=== PATIENT | female | born 1985 | race Caucasian/White ===

== ENCOUNTER 2017-09-19 18:20 | Emergency (ER) | payer MEDICAID, OTHER ==
[~2017-09-19] VITALS: Ht 165.1 cm; Wt 108.0 kg
[~2017-09-19 18:20] MED LIST: FERR27TA PO; PREN-39 PO
[2017-09-19 18:23] VITALS: Ht 165.1 cm; Wt 108.0 kg
[2017-09-19] MEDS ORDERED: KETOROLAC 15 MG INJ IV STA (19:46)
[2017-09-19] MEDS ORDERED: SOD CHLORIDE 0.9% 1,000 ML IV STA (19:46)
[2017-09-19] MEDS ORDERED: ONDANSETRON 4 MG INJ IV STA ×2 (19:46→21:04)
[2017-09-19] MEDS ORDERED: morphine 4 MG/ML VIAL IV STA (19:46)
[2017-09-19 20:34] LABS: BASOPHIL # 0.1 10^3/ul (0.0-0.1); BASOPHILS % 0.7 % (0.0-2.0); EOSINOPHILS # 0.2 10^3/ul (0.0-0.5); EOSINOPHILS % 1.6 % (0.0-7.0); HEMATOCRIT 38.4 % (37.0-47.0); HEMOGLOBIN 12.4 g/dl (12.0-16.0); LYMPHOCYTES # 2.6 10^3/ul (0.8-2.9); LYMPHOCYTES % 21.2 % (15.0-51.0); MEAN CORPUSCULAR HEMOGLOBIN 26.1 pg (29.0-33.0); MEAN CORPUSCULAR HGB CONC 32.3 g/dl (32.0-37.0); MEAN CORPUSCULAR VOLUME 80.7 fl (82.0-101.0); MEAN PLATELET VOLUME 9.8 fl (7.4-10.4); MONOCYTE # 0.7 10^3/ul (0.3-0.9); MONOCYTES % 5.4 % (0.0-11.0); NEUTROPHIL # 8.7 10^3/ul (1.6-7.5); NEUTROPHILS % 70.7 % (39.0-77.0); PLATELET COUNT 442 10^3/UL (140-415); RED BLOOD COUNT 4.76 10^6/ul (4.20-5.40); RED CELL DISTRIBUTION WIDTH 16.1 % (11.5-14.5); WHITE BLOOD COUNT 12.3 10^3/ul (4.8-10.8)
[2017-09-19 20:44] LABS: ADD UMIC NO; UR ASCORBIC ACID 40 mg/dL (NEGATIVE); UR BILIRUBIN (Dip) NEGATIVE (NEGATIVE); UR BLOOD (Dip) NEGATIVE (NEGATIVE); UR CLARITY CLEAR (CLEAR); UR COLOR YELLOW (YELLOW); UR GLUCOSE (Dip) NEGATIVE (NEGATIVE); UR KETONES (Dip) NEGATIVE (NEGATIVE); UR LEUKOCYTE ESTERASE (Dip) NEGATIVE Leu/ul (NEGATIVE); UR NITRITE (Dip) NEGATIVE (NEGATIVE); UR SPECIFIC GRAVITY (Dip) 1.025 (1.003-1.030); UR TOTAL PROTEIN (Dip) NEGATIVE (NEGATIVE); UR UROBILINOGEN (Dip) NEGATIVE (NEGATIVE)
[2017-09-19 20:49] LABS: ALBUMIN 3.8 g/dl (3.3-4.9); ALBUMIN/GLOBULIN RATIO 1.02; BILIRUBIN,INDIRECT 0.1 mg/dl (0-1.1); BILIRUBIN,TOTAL 0.1 mg/dl (0.2-1.3); CALCIUM 9.6 mg/dl (8.4-10.2); CREATININE 0.75 mg/dl (0.44-1.00); POTASSIUM 4.3 mmol/L (3.5-5.1); TOTAL PROTEIN 7.5 g/dl (6.1-8.1)
--- NOTE | 2017-09-19 20:49 | RADRPT ---
PROCEDURE: CT Abdomen and Pelvis without contrast. CLINICAL INDICATION: Abdominal pain. TECHNIQUE: CT scan of the abdomen and pelvis without contrast was performed on a multidetector CT scanner. The patient was scanned without intravenous contrast. Coronal and sagittal reformatted chelsea ges were obtained from the axial source images. Images were reviewed on a high-resolution PACS works tation. DICOM images are available. One or more of the following dose reduction techniques were used: -Automated exposure control. -Adjustment of the mA and/or kV according to patient size. -Use of iterative reconstruction technique. The total exam CTDI equals 23.31 mGy and the total exam DLP equals 1415.88 mGy-cm. COMPARISON: None. FINDINGS: Please note that the sensitivity for detection of focal lesions or vascular disease is markedly redu daniela without intravenous contrast. The visualized lung bases are clear. CT abdomen: Liver: Appears enlarged with fatty infiltration. Biliary system: No intra or extrahepatic biliary ductal dilatation. Gallbladder: Unremarkable. Pancreas: Unremarkable. Spleen: Unremarkable. Adrenal glands: Unremarkable. Right kidney: Unremarkable. No renal or ureteric stones. No hydronephrosis or hydroureter. Left kidney: Unremarkable. No renal or ureteric stones. No hydronephrosis or hydroureter. Bowel loops: There is mild sigmoid diverticulosis without acute diverticulitis. There is no bowel o bstruction. Appendix is normal. Lymph Nodes: There is no mesenteric lymphadenopathy. There is no retroperitoneal lymphadenopathy. There is a healed midline abdominal incision with associated thickening of the anterior abdominal wa ll with associated fat stranding. CT pelvis: Rectum: Unremarkable. Urinary bladder: Unremarkable. Status post hysterectomy. No adnexal masses. Lymph nodes: There is no iliac lymphadenopathy. There is no inguinal lymphadenopathy. Bone: No aggressive osseous lesions. IMPRESSION: 1. Healed midline abdominal incision with associated thickening of the anterior abdominal wall with associated fat stranding. Findings could be related to fibrosis, however recommend correlation for a ny signs of infection. 2. No bowel obstruction. Normal appendix. 3. Hepatomegaly with hepatic steatosis. 4. Status post hysterectomy. RPTAT: [facility] Physician Josh Date Time Electronically viewed and signed by Philipy Ho, Physician on 09/19/2017 20:48 PH/
[2017-09-19] MEDS ORDERED: IBUP400T22 PO (21:10)
[2017-09-19 21:20] VITALS: BP 103/55; PULSE 74; RESP 20; TEMP 98.1
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
== END 2017-09-19 21:22 | disposition home or self-care (01) ==
LOC: FTE 18:20
DX: R10.84 Generalized abdominal pain (principal); F17.210 Nicotine dependence, cigarettes, uncomplicated
CPT/HCPCS: 74176; 80053; 81003; 83690; 85025; 96374; 96375; 96376; J1885; J2270; J2405; J7030; Z7502

== ENCOUNTER 2019-01-13 16:53 | Inpatient (IN) | payer OTHER ==
[~2019-01-13] VITALS: Ht 154.9 cm; Wt 108.9 kg
[~2019-01-13 16:53] MED LIST changes: +IBUP-1541 PO
[2019-01-13 17:20] VITALS: Ht 154.9 cm; Wt 108.9 kg
[2019-01-13] MEDS ORDERED: NACL 0.9% 3 ML SYG IV SCH (17:30)
[2019-01-13] MEDS ORDERED: MAGNESIUM HYDROXIDE 30ML CUP PO PRN (17:30)
[2019-01-13] MEDS ORDERED: ACETAMINOPHEN 325 MG TAB PO PRN (17:30)
[2019-01-13] MEDS ORDERED: DOCUSATE SODIUM 100 MG CAP PO PRN (17:30)
[2019-01-13] MEDS ORDERED: ONDANSETRON 4 MG INJ IV PRN (17:30)
[2019-01-13 17:32] VITALS: BP 118/71; PULSE 79; RESP 18
[2019-01-13] MEDS: morphine 2 MG INJ IV PRN ×2 (17:54→22:07)
[2019-01-13] MEDS: FERROUS SULFATE (EC) 325 MG TAB PO SCH (17:54)
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
[2019-01-13] MEDS: NICOTINE (21 MG/24 HR) PATCH TRANSDERM SCH (19:02)
[2019-01-13 19:59] VITALS: BP 129/74; PULSE 83; RESP 18
[2019-01-13] MEDS: FAMOTIDINE 20 MG TAB PO SCH (21:28)
[2019-01-13] MEDS: HYDROCODONE/APAP (5/325) TAB PO PRN (23:18)
[2019-01-14 02:07] VITALS: BP 125/68; PULSE 77; RESP 18
[2019-01-14 08:02] VITALS: BP 120/66; PULSE 73; RESP 18
--- NOTE | 2019-01-14 08:49 | PN ---
Date/Time of Note Date/Time of Note DATE: 01/14/19 TIME: 08:49 Assessment/Plan VTE Prophylaxis Risk score (from Nsg)>0 risk: 2 SCD applied (from Nsg): Yes Pharmacological prophylaxis: NA/contraindicated Pharm contraindication: low risk/ambulating Lines/Catheters IV Catheter Type (from Nrsg): Peripheral IV Assessment/Plan Assessment/Plan 1. Acute neck, scalp, and chest discomfort - IR consulted for biopsy of soft tissue densities seen on OSH CT chest. - CT chest from OSH reviewed and shows "ill-defined increased soft tissue density in the subcutaneous fat overlying the right medial clavicular head with normal asymmetric enlargement of the distal inferior right sternocleidomastoid muscle measuring up to 5 x3.5bm. Abnormal ill defined soft tissue density posterior to the manubrium extending superiorly anterior to the thyroid displacing the thyroid, innominate vein, and the trachea posteriorly approx 4.6 x 4cm." - pain control 2. Microcytic anemia - iron levels noted - continue on home iron supplementation - Hgb stable 3. Tobacco abuse - nicotine patch - offered cessation counseling 4. Meth abuse - counseled about cessation 5. Transaminitis - US RUQ shows fatty liver - will monitor for improvement in LFT - Hepatitis panel negative 6. Disposition - Continue current treatment pending IR biopsy of soft tissue densities Result Diagram: 01/14/19 0550 01/14/19 0550 Results 24hrs Laboratory Tests Test 01/14/19 05:50 White Blood Count 5.6 # Red Blood Count 5.09 Hemoglobin 12.9 Hematocrit 41.1 Mean Corpuscular Volume 80.7 L Mean Corpuscular Hemoglobin 25.3 L Mean Corpuscular Hemoglobin Concent 31.4 L Red Cell Distribution Width 12.9 Platelet Count 496 H Mean Platelet Volume 9.0 Immature Granulocytes % 0.400 Neutrophils % 70.1 Lymphocytes % 20.5 Monocytes % 6.1 Eosinophils % 2.2 Basophils % 0.7 Nucleated Red Blood Cells % 0.0 Immature Granulocytes # 0.020 Neutrophils # 3.9 Lymphocytes # 1.1 Monocytes # 0.3 Eosinophils # 0.1 Basophils # 0.0 Nucleated Red Blood Cells # 0.0 Sodium Level 138 Potassium Level 5.1 Chloride Level 100 Carbon Dioxide Level 31 Anion Gap 7 Blood Urea Nitrogen 13 Creatinine 0.69 Est Glomerular Filtrat Rate mL/min > 60 Glucose Level 108 Calcium Level 8.9 Magnesium Level 2.1 Iron Level 30 L Total Iron Binding Capacity 275 Percent Iron Saturation 11 L Total Bilirubin 0.2 Direct Bilirubin 0.00 Indirect Bilirubin 0.2 Aspartate Amino Transf (AST/SGOT) 498 H Alanine Aminotransferase (ALT/SGPT) 241 H Alkaline Phosphatase 254 H Total Protein 7.5 Albumin 3.4 Globulin 4.10 H Albumin/Globulin Ratio 0.82 Free Thyroxine Index 2.27 Thyroxine (T4) 7.3 Triiodothyronine (T3) Uptake 31.1 Subjective 24 Hr Interval Summary Free Text/Dictation Patient states she's still experiencing pain with movement of her head to the le ft. States relief with Morphine and [place]. Exam/Review of Systems Exam Vitals Vital Signs Date Temp Pulse Resp B/P (MAP) Pulse Ox O2 O2 Flow FiO2 Time Delivery Rate 01/14/19 98.3 73 18 120/66 97 Room Air 08:02 (84) Intake and Output 01/13/19 01/13/19 01/14/19 1515:00 23:00 07:00 IntakeIntake Total 240 ml 200 ml BalanceBalance 240 ml 200 ml Exam General: no acute distress, discomfort when turns head to left. Head: Normocephalic atraumatic Eyes: EOMI, pupils reactive to light. Neck: Supple, nontender Chest: erythema and hard mass palpated right clavicular area. Respiratory: Clear to auscultation bilaterally. no wheezing or rhonchi Cardiovascular: S1, S2, regular rate and rhythm, no obvious murmurs Gastrointestinal: soft, non-tender to palpation, nondistended, bowel sounds heard. Skin: no draining masses appreciated Results Results 24hrs Laboratory Tests Test 01/14/19 05:50 White Blood Count 5.6 # Red Blood Count 5.09 Hemoglobin 12.9 Hematocrit 41.1 Mean Corpuscular Volume 80.7 L Mean Corpuscular Hemoglobin 25.3 L Mean Corpuscular Hemoglobin Concent 31.4 L Red Cell Distribution Width 12.9 Platelet Count 496 H Mean Platelet Volume 9.0 Immature Granulocytes % 0.400 Neutrophils % 70.1 Lymphocytes % 20.5 Monocytes % 6.1 Eosinophils % 2.2 Basophils % 0.7 Nucleated Red Blood Cells % 0.0 Immature Granulocytes # 0.020 Neutrophils # 3.9 Lymphocytes # 1.1 Monocytes # 0.3 Eosinophils # 0.1 Basophils # 0.0 Nucleated Red Blood Cells # 0.0 Sodium Level 138 Potassium Level 5.1 Chloride Level 100 Carbon Dioxide Level 31 Anion Gap 7 Blood Urea Nitrogen 13 Creatinine 0.69 Est Glomerular Filtrat Rate mL/min > 60 Glucose Level 108 Calcium Level 8.9 Magnesium Level 2.1 Iron Level 30 L Total Iron Binding Capacity 275 Percent Iron Saturation 11 L Total Bilirubin 0.2 Direct Bilirubin 0.00 Indirect Bilirubin 0.2 Aspartate Amino Transf (AST/SGOT) 498 H Alanine Aminotransferase (ALT/SGPT) 241 H Alkaline Phosphatase 254 H Total Protein 7.5 Albumin 3.4 Globulin 4.10 H Albumin/Globulin Ratio 0.82 Free Thyroxine Index 2.27 Thyroxine (T4) 7.3 Triiodothyronine (T3) Uptake 31.1 Medications Medication Current Medications Ferrous Sulfate (Ferrous Sulfate (Ec)) 325 mg DAILY PO Last administered on 01/13/19at 17:54; Admin Dose 325 MG; Start 01/13/19 at 17:30 IV Flush (NS 3 ml) 3 ml PER PROTOCOL IV ; Start 01/13/19 at 17:30 Ondansetron HCl (Zofran Inj) 4 mg Q6H PRN IV NAUSEA/VOMITING; Start 01/13/19 at 17:30 Acetaminophen (Tylenol Tab) 650 mg Q6H PRN PO .PAIN 1-3 OR TEMP; Start 01/13/19 at 17:30 Acetaminophen/ Hydrocodone Bitart ([place] (5/325)) 1 tab Q6H PRN PO .MOD PAIN 4- 6 Last administered on 01/13/19at 23:18; Admin Dose 1 TAB; Start 01/13/19 at 17:30 Morphine Sulfate (morphine) 2 mg Q4H PRN IV .SEVERE PAIN 7-10 Last administered on 01/13/19at 22:07; Admin Dose 2 MG; Start 01/13/19 at 17:30 Docusate Sodium (Colace) 100 mg Q12H PRN PO .CONSTIPATION; Start 01/13/19 at 17:30 Magnesium Hydroxide (Milk Of Mag) 30 ml DAILY PRN PO .CONSTIPATION; Start 01/13/19 at 17:30 Famotidine (Pepcid) 20 mg Q12 PO Last administered on 01/13/19at 21:28; Admin Do se 20 MG; Start 01/13/19 at 21:00 Nicotine (Nicoderm 21 Mg/ 24hr) 1 patch DAILY TRANSDERM Last administered on 01/13/19at 19:02; Admin Dose 1 PATCH; Start 01/13/19 at 18:30 MEENAKSHI BROUSSARD MD Jan 14, 2019 08:49
[2019-01-14] MEDS: FAMOTIDINE 20 MG TAB PO SCH ×2 (09:40→20:37)
[2019-01-14] MEDS: FERROUS SULFATE (EC) 325 MG TAB PO SCH (09:40)
[2019-01-14] MEDS: NICOTINE (21 MG/24 HR) PATCH TRANSDERM SCH (09:40)
[2019-01-14] MEDS: morphine 2 MG INJ IV PRN ×3 (09:41→20:38)
[2019-01-14] MEDS: HYDROCODONE/APAP (5/325) TAB PO PRN ×2 (11:36→18:36)
[2019-01-14 14:49] VITALS: BP 122/82; PULSE 87; RESP 18
[2019-01-14 20:06] VITALS: BP 130/56; PULSE 88; RESP 18
[2019-01-15] MEDS: morphine 2 MG INJ IV PRN ×4 (01:04→17:13)
[2019-01-15 01:55] VITALS: BP 132/62; PULSE 82; RESP 18
[2019-01-15] MEDS: HYDROCODONE/APAP (5/325) TAB PO PRN ×3 (02:20→15:23)
[2019-01-15 07:33] VITALS: BP 138/69; PULSE 89; RESP 17
[2019-01-15] MEDS: FERROUS SULFATE (EC) 325 MG TAB PO SCH (08:11)
[2019-01-15] MEDS: FAMOTIDINE 20 MG TAB PO SCH ×2 (08:11→21:20)
[2019-01-15] MEDS: NICOTINE (21 MG/24 HR) PATCH TRANSDERM SCH (08:11)
--- NOTE | 2019-01-15 08:44 | PN ---
Date/Time of Note Date/Time of Note DATE: 01/15/19 TIME: 08:44 Assessment/Plan VTE Prophylaxis Risk score (from Ns)>0 risk: 2 SCD applied (from Ns): Yes Pharmacological prophylaxis: NA/contraindicated Pharm contraindication: low risk/ambulating Lines/Catheters IV Catheter Type (from Nrsg): Saline Lock Assessment/Plan Assessment/Plan 1. Acute neck, scalp, and chest discomfort - Secondary to enlargement of SCM seen on imaging studies 2. Density overlying R clavicular head and anterior to thyroid - IR consulted for biopsy of soft tissue densities seen on OSH CT chest. - CT chest from OSH reviewed and shows "ill-defined increased soft tissue density in the subcutaneous fat overlying the right medial clavicular head with normal asymmetric enlargement of the distal inferior right sternocleidomastoid muscle measuring up to 5 x3.5bm. Abnormal ill defined soft tissue density posterior to the manubrium extending superiorly anterior to the thyroid displacing the thyroid, innominate vein, and the trachea posteriorly approx 4.6 x 4cm." - pain control 3. Microcytic anemia - iron levels noted - continue on home iron supplementation - Hgb stable 4. Tobacco abuse - nicotine patch - offered cessation counseling 5. Meth abuse - counseled about cessation 6. Transaminitis - US RUQ shows fatty liver - LFT trending down - Hepatitis panel negative 7. Disposition - Continue current treatment pending IR biopsy of soft tissue densities tomorrow Result Diagram: 01/15/19 0534 01/15/19 0534 Results 24hrs Laboratory Tests Test 01/15/19 05:34 White Blood Count 8.2 # Red Blood Count 5.07 Hemoglobin 12.9 Hematocrit 40.8 Mean Corpuscular Volume 80.5 L Mean Corpuscular Hemoglobin 25.4 L Mean Corpuscular Hemoglobin Concent 31.6 L Red Cell Distribution Width 13.1 Platelet Count 565 H Mean Platelet Volume 8.9 Immature Granulocytes % 0.500 H Neutrophils % 71.3 Lymphocytes % 18.1 Monocytes % 6.8 Eosinophils % 2.6 Basophils % 0.7 Nucleated Red Blood Cells % 0.0 Immature Granulocytes # 0.040 H Neutrophils # 5.9 Lymphocytes # 1.5 Monocytes # 0.6 Eosinophils # 0.2 Basophils # 0.1 Nucleated Red Blood Cells # 0.0 Sodium Level 139 Potassium Level 4.7 Chloride Level 102 Carbon Dioxide Level 31 Anion Gap 6 Blood Urea Nitrogen 11 Creatinine 0.73 Est Glomerular Filtrat Rate mL/min > 60 Glucose Level 100 Calcium Level 8.8 Magnesium Level 2.2 Total Bilirubin 0.2 Direct Bilirubin 0.00 Indirect Bilirubin 0.2 Aspartate Amino Transf (AST/SGOT) 232 H Alanine Aminotransferase (ALT/SGPT) 278 H Alkaline Phosphatase 273 H Total Protein 7.6 Albumin 3.5 Globulin 4.10 H Albumin/Globulin Ratio 0.85 Subjective 24 Hr Interval Summary Free Text/Dictation Patient still complaining of pain when turning her neck to the left. No acute overnight events. Exam/Review of Systems Exam Vitals Vital Signs Date Temp Pulse Resp B/P (MAP) Pulse Ox O2 O2 Flow FiO2 Time Delivery Rate 01/15/19 98.0 89 17 138/69 98 Room Air 07:33 (92) Intake and Output 01/14/19 01/14/19 01/15/19 1515:00 23:00 07:00 IntakeIntake Total 720 ml 360 ml 400 ml BalanceBalance 720 ml 360 ml 400 ml Exam General: no acute distress, discomfort when turns head to left. Head: Normocephalic atraumatic Eyes: EOMI, pupils reactive to light. Neck: Supple, nontender Chest: erythema and hard mass palpated right clavicular area. Respiratory: Clear to auscultation bilaterally. no wheezing or rhonchi Cardiovascular: S1, S2, regular rate and rhythm, no obvious murmurs Gastrointestinal: soft, non-tender to palpation, nondistended, bowel sounds heard. Skin: no draining masses appreciated Results Results 24hrs Laboratory Tests Test 01/15/19 05:34 White Blood Count 8.2 # Red Blood Count 5.07 Hemoglobin 12.9 Hematocrit 40.8 Mean Corpuscular Volume 80.5 L Mean Corpuscular Hemoglobin 25.4 L Mean Corpuscular Hemoglobin Concent 31.6 L Red Cell Distribution Width 13.1 Platelet Count 565 H Mean Platelet Volume 8.9 Immature Granulocytes % 0.500 H Neutrophils % 71.3 Lymphocytes % 18.1 Monocytes % 6.8 Eosinophils % 2.6 Basophils % 0.7 Nucleated Red Blood Cells % 0.0 Immature Granulocytes # 0.040 H Neutrophils # 5.9 Lymphocytes # 1.5 Monocytes # 0.6 Eosinophils # 0.2 Basophils # 0.1 Nucleated Red Blood Cells # 0.0 Sodium Level 139 Potassium Level 4.7 Chloride Level 102 Carbon Dioxide Level 31 Anion Gap 6 Blood Urea Nitrogen 11 Creatinine 0.73 Est Glomerular Filtrat Rate mL/min > 60 Glucose Level 100 Calcium Level 8.8 Magnesium Level 2.2 Total Bilirubin 0.2 Direct Bilirubin 0.00 Indirect Bilirubin 0.2 Aspartate Amino Transf (AST/SGOT) 232 H Alanine Aminotransferase (ALT/SGPT) 278 H Alkaline Phosphatase 273 H Total Protein 7.6 Albumin 3.5 Globulin 4.10 H Albumin/Globulin Ratio 0.85 Medications Medication Current Medications Ferrous Sulfate (Ferrous Sulfate (Ec)) 325 mg DAILY PO Last administered on 01/15/19 08:11; Admin Dose 325 MG; Start 01/13/19 at 17:30 IV Flush (NS 3 ml) 3 ml PER PROTOCOL IV ; Start 01/13/19 at 17:30 Ondansetron HCl (Zofran Inj) 4 mg Q6H PRN IV NAUSEA/VOMITING; Start 01/13/19 at 17:30 Acetaminophen (Tylenol Tab) 650 mg Q6H PRN PO .PAIN 1-3 OR TEMP; Start 01/13/19 at 17:30 Acetaminophen/ Hydrocodone Bitart ([place] (5/325)) 1 tab Q6H PRN PO .MOD PAIN 4- 6 Last administered on 01/15/19 02:20; Admin Dose 1 TAB; Start 01/13/19 at 17:30 Morphine Sulfate (morphine) 2 mg Q4H PRN IV .SEVERE PAIN 7-10 Last administered on 01/15/19 07:48; Admin Dose 2 MG; Start 01/13/19 at 17:30 Docusate Sodium (Colace) 100 mg Q12H PRN PO .CONSTIPATION; Start 01/13/19 at 17:30 Magnesium Hydroxide (Milk Of Mag) 30 ml DAILY PRN PO .CONSTIPATION; Start 01/13/19 at 17:30 Famotidine (Pepcid) 20 mg Q12 PO Last administered on 01/15/19 08:11; Admin Dose 20 MG; Start 01/13/19 at 21:00 Nicotine (Nicoderm 21 Mg/ 24hr) 1 patch DAILY TRANSDERM Last administered on 01/15/19 08:11; Admin Dose 1 PATCH; Start 01/13/19 at 18:30 MEENAKSHI BROUSSARD MD Jan 15, 2019 08:44
[2019-01-15 14:41] VITALS: BP 134/76; PULSE 89; RESP 17
[2019-01-15 19:15] VITALS: BP 135/76; PULSE 98; RESP 18
[2019-01-15] MEDS: HYDROmorphONE 0.5 MG/0.5 ML SYG IV PRN (21:20)
[2019-01-16 01:16] VITALS: BP 143/70; PULSE 97; RESP 18
[2019-01-16] MEDS: HYDROmorphONE 0.5 MG/0.5 ML SYG IV PRN ×5 (01:34→18:43)
[2019-01-16 07:35] VITALS: BP 119/67; PULSE 86; RESP 16
[2019-01-16] MEDS: FAMOTIDINE 20 MG TAB PO SCH ×2 (08:02→20:31)
[2019-01-16] MEDS: HYDROCODONE/APAP (10/325) TAB PO PRN ×2 (08:02→20:35)
[2019-01-16] MEDS: FERROUS SULFATE (EC) 325 MG TAB PO SCH (08:02)
[2019-01-16] MEDS: NICOTINE (21 MG/24 HR) PATCH TRANSDERM SCH (08:03)
[2019-01-16 14:13] VITALS: BP 119/64; PULSE 88; RESP 18
--- NOTE | 2019-01-16 18:19 | PN ---
Date/Time of Note Date/Time of Note DATE: 01/16/19 TIME: 18:19 Objective Vitals Vital Signs Date Temp Pulse Resp B/P (MAP) Pulse Ox O2 O2 Flow FiO2 Time Delivery Rate 01/16/19 97.8 88 18 119/64 96 14:13 (82) 01/15/19 Room Air 14:41 Intake and Output 01/15/19 01/15/19 01/16/19 1515:00 23:00 07:00 IntakeIntake Total 600 ml 440 ml BalanceBalance 600 ml 440 ml Results Result Diagram: 01/16/19 0455 01/16/19 0455 Medications Medications Current Medications Ferrous Sulfate (Ferrous Sulfate (Ec)) 325 mg DAILY PO Last administered on 01/16/19 08:02; Admin Dose 325 MG; Start 01/13/19 at 17:30 IV Flush (NS 3 ml) 3 ml PER PROTOCOL IV ; Start 01/13/19 at 17:30 Ondansetron HCl (Zofran Inj) 4 mg Q6H PRN IV NAUSEA/VOMITING; Start 01/13/19 at 17:30 Acetaminophen (Tylenol Tab) 650 mg Q6H PRN PO .PAIN 1-3 OR TEMP; Start 01/13/19 at 17:30 Acetaminophen/ Hydrocodone Bitart ([place] (5/325)) 1 tab Q6H PRN PO .MOD PAIN 4- 6 Last administered on 01/15/19at 15:23; Admin Dose 1 TAB; Start 01/13/19 at 17:30 Docusate Sodium (Colace) 100 mg Q12H PRN PO .CONSTIPATION; Start 01/13/19 at 17:30 Magnesium Hydroxide (Milk Of Mag) 30 ml DAILY PRN PO .CONSTIPATION; Start 01/13/19 at 17:30 Famotidine (Pepcid) 20 mg Q12 PO Last administered on 01/16/19 08:02; Admin Dose 20 MG; Start 01/13/19 at 21:00 Nicotine (Nicoderm 21 Mg/ 24hr) 1 patch DAILY TRANSDERM Last administered on 01/16/19 08:03; Admin Dose 1 PATCH; Start 01/13/19 at 18:30 Acetaminophen/ Hydrocodone Bitart ([place] (10/325)) 1 tab Q6H PRN PO SEVERE PAIN LEVEL 7-10 Last administered on 4/8/19at 08:02; Admin Dose 1 TAB; Start 01/15/19 at 18:30 Hydromorphone HCl (Dilaudid) 0.5 mg Q4H PRN IV SEVERE PAIN LEVEL 7-10 Last administered on 01/16/19at 15:10; Admin Dose 0.5 MG; Start 01/15/19 at 18:30 VTE Prophylaxis Risk score (from Ns)>0 risk: 2 SCD applied (from Ns): Yes Lines/Catheters IV Catheter Type: Fletcher in Place: No Assessment/Plan Hospital Course Subjective Patient still having complaints with the questionable neck mass, however states that it appears to increase and decrease in size and possibly move even Objective Physical exam General: Patient is laying in bed and answers questions appropriately Mentation: Patient is alert and oriented 4, Head: Normocephalic atraumatic Eyes: EOMI, pupils reactive to light Neck: Supple, nontender, midline Respiratory: Clear to auscultation bilaterally Cardiovascular: regular rate, no obvious murmurs Gastrointestinal: non-tender to palpation, bowel sounds heard. Neurological: Moves all extremities spontaneously Skin: Mild elevated and tender growth on right clavicular area, not a discrete mass however does look like an inflamed area Assessment/Plan 1. Acute neck, scalp, and chest discomfort - Secondary to enlargement of ? mass seen on imaging studies 2. Density overlying R clavicular head and anterior to thyroid - IR consulted for biopsy of soft tissue densities seen on OSH CT chest. however after speaking with radiology, it would likely be a better idea to wait for MRI to further characterize mass be biopsy. - CT chest from OSH reviewed and shows "ill-defined increased soft tissue density in the subcutaneous fat overlying the right medial clavicular head with normal asymmetric enlargement of the distal inferior right sternocleidomastoid muscle measuring up to 5 x3.5bm. Abnormal ill defined soft tissue density posterior to the manubrium extending superiorly anterior to the thyroid displacing the thyroid, innominate vein, and the trachea posteriorly approx 4.6 x 4cm." -MRI with contrast pending - pain control -Patient was previously diagnosed with the same elements at another hospital however was discharged with some antibiotics without further characterization per patient. Cannot truly rule out an inflammatory or infectious source however patient has not had any fever during this admission. Patient's white count did increase from admission so will use antibiotics prophylactically. 3. Microcytic anemia - iron levels noted - continue on home iron supplementation - Hgb stable 4. Tobacco abuse - nicotine patch - offered cessation counseling 5. Meth abuse - counseled about cessation 6. Transaminitis - US RUQ shows fatty liver - LFT trending down - Hepatitis panel negative 7. Disposition -Await MRI and subsequently obtain biopsy. KAYLYNN PEREZ Jan 16, 2019 18:19
[2019-01-16] MEDS ORDERED: VANCOMYCIN IV PER PHARMACY XX SCH (18:30)
[2019-01-16 19:22] VITALS: BP 132/61; PULSE 95; RESP 18
[2019-01-16] MEDS ORDERED: VANCOMYCIN HCL 2 GM in SOD CHLORIDE 0.9% 500 ML IVPB SCH (20:00)
[2019-01-16] MEDS: CEFEPIME 1GM/50 ML (PMX) 50 ML IVPB SCH (20:28)
[2019-01-17] MEDS: HYDROmorphONE 0.5 MG/0.5 ML SYG IV PRN ×5 (01:20→22:49)
[2019-01-17 01:43] VITALS: BP 128/64; PULSE 79; RESP 18
[2019-01-17 07:48] VITALS: BP 125/64; PULSE 83; RESP 17
[2019-01-17] MEDS: HYDROCODONE/APAP (10/325) TAB PO PRN ×2 (08:36→21:42)
[2019-01-17] MEDS: CEFEPIME 1GM/50 ML (PMX) 50 ML IVPB SCH ×2 (09:00→20:36)
[2019-01-17] MEDS: NICOTINE (21 MG/24 HR) PATCH TRANSDERM SCH (09:01)
[2019-01-17] MEDS: FAMOTIDINE 20 MG TAB PO SCH ×2 (09:01→20:35)
[2019-01-17] MEDS: FERROUS SULFATE (EC) 325 MG TAB PO SCH (09:01)
[2019-01-17] MEDS: VANCOMYCIN HCL 1.5 GM in SOD CHLORIDE 0.9% 250 ML IVPB SCH ×2 (09:50→21:36)
[2019-01-17 14:08] VITALS: BP 129/61; PULSE 93; RESP 17
--- NOTE | 2019-01-17 15:16 | CONS ---
DATE OF ADMISSION: 01/13/2019 DATE OF CONSULTATION: 01/17/2019 TYPE OF CONSULTATION: Infectious disease. REASON FOR CONSULTATION: Antibiotic management. HISTORY OF PRESENT ILLNESS: Maria Eugenia Perez is a 33-year-old female who comes in with acute neck, scalp and chest discomfort. A CT scan of the chest was reviewed and showed ill-defined increased so ft tissue density in the subcutaneous fat overlying the right medial clavicular head with normal asym metric enlargement of the distal inferior right sternocleidomastoid muscle measuring up to 5.3 cm, ab normal ill-defined soft tissue density posterior to the ____, extending superiorly and anteriorly to the thyroid, displacing the thyroid, innominate vein and the trachea, posteriorly approximately 4.6 _ ___ cm. She has microcytic anemia, tobacco abuse, methadone abuse. The pain is worsening on the rig ht side. She has a history of abdominal issues and recent abscess. She went to [facility] and she was told she may have a tumor. She denies any trauma. Ill-defined increased soft tissue den sity in the subcutaneous fat as previously noted. FAMILY HISTORY: Not pertinent, family history of COPD and diabetes. PAST SURGICAL HISTORY: Total abdominal hysterectomy with BSO and hernia repair. SOCIAL HISTORY: She is a current every day smoker. She uses methamphetamines. She does not drink. PHYSICAL EXAMINATION: GENERAL: She is lying in bed in no acute distress. VITAL SIGNS: Stable. She is afebrile. SKIN: Without generalized rash. HEENT: Within normal limits. NECK: Supple. LYMPH NODES: None palpable. CHEST: Decreased breath sounds at the bases. THORAX: Erythema and discomfort in the right clavicular area. There is hard raised area. HEART: Without murmur or gallop. ABDOMEN: Soft, nontender without organosplenomegaly or masses. EXTREMITIES: Without cyanosis, clubbing or edema. RECTAL AND GENITAL: Deferred. NEUROLOGICAL: No focal neurological abnormality. HOSPITAL COURSE: White count today is 10,000, platelets 572, H and H of 12.7 and 40.8. BUN and crea tinine is 10/0.73. This is from 01/16/2019. She is on vancomycin and cefepime. Microbiology is pen ding. A thyroid ultrasound is normal. Abdominal ultrasound: No evidence of cholelithiasis or acute cholecystitis. An MRI of the neck and chest was ordered but canceled. We may need a biopsy of the area in order to determine what we are dealing with. I will dictate my findings to the hospitalist. Dictated By: ALEXA KEVIN MD, JD/FABIAN Conf#: [id number] DID#: [id number] CC: MEENAKSHI BROUSSARD MD; KAYLYNN PEREZ MD;*EndCC*
--- NOTE | 2019-01-17 16:19 | PN ---
Date/Time of Note Date/Time of Note DATE: 01/17/19 TIME: 16:19 Objective Vitals Vital Signs Date Temp Pulse Resp B/P (MAP) Pulse Ox O2 O2 Flow FiO2 Time Delivery Rate 01/17/19 98.3 93 17 129/61 96 Room Air 14:08 (83) Intake and Output 01/16/19 01/16/19 01/17/19 1515:00 23:00 07:00 IntakeIntake Total 1200 ml 770 ml 500 ml BalanceBalance 1200 ml 770 ml 500 ml Results Result Diagram: 01/17/19 0425 01/17/19 0425 Medications Medications Current Medications Ferrous Sulfate (Ferrous Sulfate (Ec)) 325 mg DAILY PO Last administered on 01/17/19 09:01; Admin Dose 325 MG; Start 01/13/19 at 17:30 IV Flush (NS 3 ml) 3 ml PER PROTOCOL IV ; Start 01/13/19 at 17:30 Ondansetron HCl (Zofran Inj) 4 mg Q6H PRN IV NAUSEA/VOMITING; Start 01/13/19 at 17:30 Acetaminophen (Tylenol Tab) 650 mg Q6H PRN PO .PAIN 1-3 OR TEMP; Start 01/13/19 at 17:30 Acetaminophen/ Hydrocodone Bitart ([place] (5/325)) 1 tab Q6H PRN PO .MOD PAIN 4-6 Last administered on 01/15/19at 15:23; Admin Dose 1 TAB; Start 01/13/19 at 17:30 Docusate Sodium (Colace) 100 mg Q12H PRN PO .CONSTIPATION; Start 01/13/19 at 17:30 Magnesium Hydroxide (Milk Of Mag) 30 ml DAILY PRN PO .CONSTIPATION; Start 01/13/19 at 17:30 Famotidine (Pepcid) 20 mg Q12 PO Last administered on 01/17/19 09:01; Admin Dose 20 MG; Start 01/13/19 at 21:00 Nicotine (Nicoderm 21 Mg/ 24hr) 1 patch DAILY TRANSDERM Last administered on 01/17/19 09:01; Admin Dose 1 PATCH; Start 01/13/19 at 18:30 Acetaminophen/ Hydrocodone Bitart ([place] (10/325)) 1 tab Q6H PRN PO SEVERE PAIN LEVEL 7-10 Last administered on 4/9/19at 08:36; Admin Dose 1 TAB; Start 01/15/19 at 18:30 Hydromorphone HCl (Dilaudid) 0.5 mg Q4H PRN IV SEVERE PAIN LEVEL 7-10 Last administered on 01/17/19at 14:15; Admin Dose 0.5 MG; Start 01/15/19 at 18:30 Cefepime HCl 50 ml @ 100 mls/hr Q12 IVPB Last administered on 01/17/19at 09:00; Admin Dose 100 MLS/HR; Start 01/16/19 at 21:00 Vancomycin HCl (Vanco Iv Per Pharmacy) VANCOMYCIN PER PHARMACY PER PROTOCOL XX ; Start 01/16/19 at 18:30 Vancomycin HCl 1.5 gm/Sodium Chloride 250 ml @ 83.333 mls/ hr Q12H IVPB Last administered on 01/17/19at 09:50; Admin Dose 83.333 MLS/HR; Start 01/17/19 at 10:00 Miscellaneous Information (*Rx Drug Level Order Reminder*) 1 0900 ONCE XX ; Start 01/18/19 at 09:00; Stop 01/18/19 at 09:01 VTE Prophylaxis Risk score (from Ns)>0 risk: 2 SCD applied (from [facility] [place]): Yes Lines/Catheters IV Catheter Type: Fletcher in Place: No Assessment/Plan Hospital Course Subjective Patient still having complaints with the questionable neck mass, however states that it appears to increase and decrease in size and possibly move even Objective Physical exam General: Patient is laying in bed and answers questions appropriately Mentation: Patient is alert and oriented 4, Head: Normocephalic atraumatic Eyes: EOMI, pupils reactive to light Neck: Supple, nontender, midline Respiratory: Clear to auscultation bilaterally Cardiovascular: regular rate, no obvious murmurs Gastrointestinal: non-tender to palpation, bowel sounds heard. Neurological: Moves all extremities spontaneously Skin: Mild elevated and tender growth on right clavicular area, not a discrete mass however does look like an inflamed area Assessment/Plan 1. Acute neck, scalp, and chest discomfort - Secondary to enlargement of ? mass seen on imaging studies 2. Density overlying R clavicular head and anterior to thyroid - IR consulted for biopsy of soft tissue densities seen on OSH CT chest. however after speaking with radiology, it would likely be a better idea to wait for MRI to further characterize mass be biopsy. - CT chest from OSH reviewed and shows "ill-defined increased soft tissue density in the subcutaneous fat overlying the right medial clavicular head with normal asymmetric enlargement of the distal inferior right sternocleidomastoid muscle measuring up to 5 x3.5bm. Abnormal ill defined soft tissue density posterior to the manubrium extending superiorly anterior to the thyroid displacing the thyroid, innominate vein, and the trachea posteriorly approx 4.6 x 4cm." -MRI with contrast pending - pain control -Patient was previously diagnosed with the same elements at another hospital however was discharged with some antibiotics without further characterization per patient. Cannot truly rule out an inflammatory or infectious source however patient has not had any fever during this admission. Patient's white count did increase from admission so will use antibiotics prophylactically. 3. Microcytic anemia - iron levels noted - continue on home iron supplementation - Hgb stable 4. Tobacco abuse - nicotine patch - offered cessation counseling 5. Meth abuse - counseled about cessation 6. Transaminitis - US RUQ shows fatty liver - LFT trending down - Hepatitis panel negative 7. Disposition -Await MRI and subsequently obtain biopsy. KAYLYNN PEREZ Jan 17, 2019 16:19
[2019-01-17] MEDS ORDERED: HYDROmorphONE 0.5 MG/0.5 ML SYG IV STA (16:49)
[2019-01-17 20:00] VITALS: BP 126/60; PULSE 105; RESP 20
[2019-01-18 02:00] VITALS: BP 105/74; PULSE 86; RESP 18
[2019-01-18] MEDS: HYDROmorphONE 0.5 MG/0.5 ML SYG IV PRN ×5 (03:55→21:35)
[2019-01-18 08:20] VITALS: BP 140/71; PULSE 81; RESP 18
[2019-01-18] MEDS: FERROUS SULFATE (EC) 325 MG TAB PO SCH (08:57)
[2019-01-18] MEDS: FAMOTIDINE 20 MG TAB PO SCH ×2 (08:57→21:35)
[2019-01-18] MEDS: NICOTINE (21 MG/24 HR) PATCH TRANSDERM SCH (08:58)
[2019-01-18] MEDS: CEFEPIME 1GM/50 ML (PMX) 50 ML IVPB SCH ×2 (08:58→21:34)
[2019-01-18] MEDS: VANCOMYCIN HCL 1.5 GM in SOD CHLORIDE 0.9% 250 ML IVPB SCH (10:12)
[2019-01-18 14:10] VITALS: BP 125/68; PULSE 94; RESP 18
--- NOTE | 2019-01-18 14:55 | PN ---
Date/Time of Note Date/Time of Note DATE: 01/18/19 TIME: 14:53 Objective Vitals Vital Signs Date Temp Pulse Resp B/P (MAP) Pulse Ox O2 O2 Flow FiO2 Time Delivery Rate 01/18/19 98.3 81 18 140/71 93 Room Air 08:20 (94) Intake and Output 01/17/19 01/17/19 01/18/19 1515:00 23:00 07:00 IntakeIntake Total 660 ml 1210 ml 250 ml BalanceBalance 660 ml 1210 ml 250 ml Results Result Diagram: 01/18/19 0428 01/18/19 0428 Medications Medications Current Medications Ferrous Sulfate (Ferrous Sulfate (Ec)) 325 mg DAILY PO Last administered on 01/18/19 08:57; Admin Dose 325 MG; Start 01/13/19 at 17:30 IV Flush (NS 3 ml) 3 ml PER PROTOCOL IV ; Start 01/13/19 at 17:30 Ondansetron HCl (Zofran Inj) 4 mg Q6H PRN IV NAUSEA/VOMITING; Start 01/13/19 at 17:30 Acetaminophen (Tylenol Tab) 650 mg Q6H PRN PO .PAIN 1-3 OR TEMP; Start 01/13/19 at 17:30 Acetaminophen/ Hydrocodone Bitart ([place] (5/325)) 1 tab Q6H PRN PO .MOD PAIN 4- 6 Last administered on 01/15/19at 15:23; Admin Dose 1 TAB; Start 01/13/19 at 17:30 Docusate Sodium (Colace) 100 mg Q12H PRN PO .CONSTIPATION; Start 01/13/19 at 17:30 Magnesium Hydroxide (Milk Of Mag) 30 ml DAILY PRN PO .CONSTIPATION; Start 01/13/19 at 17:30 Famotidine (Pepcid) 20 mg Q12 PO Last administered on 01/18/19 08:57; Admin Dose 20 MG; Start 01/13/19 at 21:00 Nicotine (Nicoderm 21 Mg/ 24hr) 1 patch DAILY TRANSDERM Last administered on 01/18/19 08:58; Admin Dose 1 PATCH; Start 01/13/19 at 18:30 Acetaminophen/ Hydrocodone Bitart ([place] (10/325)) 1 tab Q6H PRN PO SEVERE PAIN LEVEL 7-10 Last administered on 4/9/19at 21:42; Admin Dose 1 TAB; Start 01/15/19 at 18:30 Hydromorphone HCl (Dilaudid) 0.5 mg Q4H PRN IV SEVERE PAIN LEVEL 7-10 Last administered on 01/18/19at 13:12; Admin Dose 0.5 MG; Start 01/15/19 at 18:30 Cefepime HCl 50 ml @ 100 mls/hr Q12 IVPB Last administered on 01/18/19at 08:58; Admin Dose 100 MLS/HR; Start 01/16/19 at 21:00 Vancomycin HCl (Vanco Iv Per Pharmacy) VANCOMYCIN PER PHARMACY PER PROTOCOL XX ; Start 01/16/19 at 18:30 Vancomycin HCl 1.5 gm/Sodium Chloride 250 ml @ 83.333 mls/ hr Q12H IVPB Last administered on 01/18/19at 10:12; Admin Dose 83.333 MLS/HR; Start 01/17/19 at 10:00 VTE Prophylaxis Risk score (from Ns)>0 risk: 2 SCD applied ([place] [facility] [place] Lines/Catheters IV Catheter Type: Fletcher in Place: No Assessment/Plan Hospital Course Subjective Patient still having complaints with neck pain, however states it has not fluct uated in size overnight Objective Physical exam General: Patient is laying in bed and answers questions appropriately Mentation: Patient is alert and oriented 4, Head: Normocephalic atraumatic Eyes: EOMI, pupils reactive to light Neck: Supple, nontender, midline Respiratory: Clear to auscultation bilaterally Cardiovascular: regular rate, no obvious murmurs Gastrointestinal: non-tender to palpation, bowel sounds heard. 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 Microcytic anemia - iron levels noted - continue on home iron supplementation - Hgb stable 4. Tobacco abuse - nicotine patch - offered cessation counseling 5. Meth abuse - counseled about cessation -Patient does have a history of IV meth use as recent as 2 weeks before admission 6. Transaminitis - US RUQ shows fatty liver - LFT trending down - Hepatitis panel negative 7. Disposition -Awaiting consultation from orthopedic surgery as well as cardiothoracic surgery KAYLYNN PEREZ Jan 18, 2019 14:55
--- NOTE | 2019-01-18 15:15 | CONS ---
Assessment/Plan Assessment/Plan Hospital Course (Demo Recall) Patient is alert laying comfortably in bed she has some pain in her right upper shoulder area with significant really limited range of motion of her right upper extremity. T-max 99.9. T-current 98.3. WBC 10.8, no shift no bands. BUN 13 creatinine 0.67. Antimicrobials: Vancomycin, cefepime Diagnostic: MRI of neck with and without IV contrast revealed 1. Extensive inflammatory changes centered around the right sternoclavicular joint with abnormal bone marrow signal of the medial aspect of the right clavicle without destructive osseous changes. The findings are suggestive of infectious/inflammatory arthropathy of the right sternoclavicular joint with reactive changes in the soft tissues. If there is clinical concern for osteomyelitis, short-term MRI follow-up is recommended. 2. Asymmetrically enlarged and edematous appearance of right pectoral and sternocleidomastoid muscles with surrounding soft tissue inflammation in keeping with myositis/cellulitis. No drainable abscess formation is identified. Physical examination: This is a morbidly obese well-developed middle-aged woman who is awake in no distress. Head atraumatic normocephalic sclera nonicteric. Neck is obese. Chest rise symmetrical breath sounds diminished at bases. Heart: S1-S2. Abdomen soft bowel sounds present. Extremities without cyanosis. Assessment: 1. Right sternoclavicular infection, possible osteomyelitis 2. Morbid obesity 3. Methamphetamine abuse Plan: We are going to order blood cultures and consider Ortho evaluation, continue on current antibiotics Consultation Date/Type/Reason Admit Date/Time Jan 13, 2019 at 16:53 Initial Consult Date Type of Consult id Date/Time of Note DATE: 01/18/19 TIME: 15:15 Exam/Review of Systems Exam Vitals Vital Signs Date Temp Pulse Resp B/P (MAP) Pulse Ox O2 O2 Flow FiO2 Time Delivery Rate 01/18/19 98.3 81 18 140/71 93 Room Air 08:20 (94) Intake and Output 01/17/19 01/17/19 01/18/19 1515:00 23:00 07:00 IntakeIntake Total 660 ml 1210 ml 250 ml BalanceBalance 660 ml 1210 ml 250 ml Results Result Diagram: 01/18/19 0428 01/18/19 0428 Results 24hrs Laboratory Tests Test 01/18/19 04:28 01/18/19 08:36 White Blood Count 10.8 Red Blood Count 4.95 Hemoglobin 12.5 Hematocrit 40.3 Mean Corpuscular Volume 81.4 L Mean Corpuscular Hemoglobin 25.3 L Mean Corpuscular Hemoglobin Concent 31.0 L Red Cell Distribution Width 13.2 Platelet Count 551 H Mean Platelet Volume 9.2 Immature Granulocytes % 0.700 H Neutrophils % 72.4 Lymphocytes % 16.9 Monocytes % 6.7 Eosinophils % 2.7 Basophils % 0.6 Nucleated Red Blood Cells % 0.0 Immature Granulocytes # 0.080 H Neutrophils # 7.8 H Lymphocytes # 1.8 Monocytes # 0.7 Eosinophils # 0.3 Basophils # 0.1 Nucleated Red Blood Cells # 0.0 Sodium Level 139 Potassium Level 4.5 Chloride Level 99 Carbon Dioxide Level 32 H Anion Gap 8 Blood Urea Nitrogen 13 Creatinine 0.67 Est Glomerular Filtrat Rate mL/min > 60 Glucose Level 117 Calcium Level 8.6 Phosphorus Level 4.6 Magnesium Level 2.1 Vancomycin Level Trough 10.1 Medications Medication Current Medications Ferrous Sulfate (Ferrous Sulfate (Ec)) 325 mg DAILY PO Last administered on 01/18/19at 08:57; Admin Dose 325 MG; Start 01/13/19 at 17:30 IV Flush (NS 3 ml) 3 ml PER PROTOCOL IV ; Start 01/13/19 at 17:30 Ondansetron HCl (Zofran Inj) 4 mg Q6H PRN IV NAUSEA/VOMITING; Start 01/13/19 at 17:30 Acetaminophen (Tylenol Tab) 650 mg Q6H PRN PO .PAIN 1-3 OR TEMP; Start 01/13/19 at 17:30 Docusate Sodium (Colace) 100 mg Q12H PRN PO .CONSTIPATION; Start 01/13/19 at 17:30 Magnesium Hydroxide (Milk Of Mag) 30 ml DAILY PRN PO .CONSTIPATION; Start 01/13/19 at 17:30 Famotidine (Pepcid) 20 mg Q12 PO Last administered on 01/18/19at 08:57; Admin Dose 20 MG; Start 01/13/19 at 21:00 Nicotine (Nicoderm 21 Mg/ 24hr) 1 patch DAILY TRANSDERM Last administered on 01/18/19at 08:58; Admin Dose 1 PATCH; Start 01/13/19 at 18:30 Acetaminophen/ Hydrocodone Bitart ([place] ()) 1 tab Q6H PRN PO SEVERE PAIN LEVEL 7-10 Last administered on 01/17/19at 21:42; Admin Dose 1 TAB; Start 01/15/19 at 18:30 Hydromorphone HCl (Dilaudid) 0.5 mg Q4H PRN IV SEVERE PAIN LEVEL 7-10 Last administered on 01/18/19at 13:12; Admin Dose 0.5 MG; Start 01/15/19 at 18:30 Cefepime HCl 50 ml @ 100 mls/hr Q12 IVPB Last administered on 01/18/19at 08:58; Admin Dose 100 MLS/HR; Start 01/16/19 at 21:00 Vancomycin HCl (Vanco Iv Per Pharmacy) VANCOMYCIN PER PHARMACY PER PROTOCOL XX ; Start 01/16/19 at 18:30 Vancomycin HCl 1.5 gm/Sodium Chloride 250 ml @ 83.333 mls/ hr Q12H IVPB Last administered on 01/18/19at 10:12; Admin Dose 83.333 MLS/HR; Start 01/17/19 at 10:00 TATIANA POTTER NP Jan 18, 2019 15:15
[2019-01-18] MEDS: HYDROCODONE/APAP (10/325) TAB PO PRN (15:51)
--- NOTE | 2019-01-18 18:44 | CONS ---
Assessment/Plan Assessment/Plan Hospital Course (Demo Recall) 33-year-old female with history of IV drug abuse with methamphetamine who presented with right clavicular and sternal pain. Advanced imaging is consistent with osteomyelitis and myositis of the right SC joint and surrounding muscles. There is no defined mass. There is no defined fluid collection. Given that there is currently no fluid collection to drain IV antibiotics should be continued. She will likely need IV antibiotics for at least 6 weeks followed by p.o. antibiotics. This may be challenging given the patient may need a PICC line but also has history of IV drug abuse and would not be able to be discharged with a PICC line. For fluid collection or drainable abscess does form and/or she fails antibiotic therapy she will need a formal irrigation debridement in the operating room. Given the location of this I am recommending thoracic surgery to be consulted if this were to happen. Thank you for the consult Consultation Date/Type/Reason Admit Date/Time Jan 13, 2019 at 16:53 Date of Consultation: Jan 18, 2019 Reason for Consultation Right SC joint osteomyelitis and myositis Date/Time of Note DATE: 01/18/19 TIME: 18:41 Hx of Present Illness 33-year-old female with history of IV methamphetamine abuse. She has used a couple times in the last month. Patient states for approximately a month and a half she has had right upper chest pain and swelling. She originally presented to [facility] and was discharged on p.o. antibiotics. Over the course of the last few weeks the pain and swelling waxed and waned. She denies fevers and chills. Denies numbness and tingling. Orthopedics was consulted after an MRI with and without contrast was obtained demonstrating findings consistent worrisome for osteomyelitis of the SC joint as well as myositis. Infectious disease has already been consulted. Patient is on vancomycin and cefepime. Patient denies fever, chills, shortness of breath, chest pain, nausea/vomiting, constipation, diarrhea, numbness, and tingling. Past Medical History Medical History: no pertinent history Home Meds Active Scripts Ibuprofen* (Ibuprofen*) 400 Mg Tablet, 400 MG PO Q6H PRN for PAIN, #30 TAB Prov:IDANIA SANDERSON PA-C 09/19/17 Reported Medications Ferrous Sulfate (Iron) 1 Tab Tablet, 1 TAB PO DAILY 05/25/12 Vits W-Ca,Fe,Fa(<1MG) ( Vitamins) 1 Tab Tablet, 1 TAB PO DAILY 05/25/12 Medications Current Medications Ferrous Sulfate (Ferrous Sulfate (Ec)) 325 mg DAILY PO Last administered on 01/18/19 08:57; Admin Dose 325 MG; Start 01/13/19 at 17:30 IV Flush (NS 3 ml) 3 ml PER PROTOCOL IV ; Start 01/13/19 at 17:30 Ondansetron HCl (Zofran Inj) 4 mg Q6H PRN IV NAUSEA/VOMITING; Start 01/13/19 at 17:30 Acetaminophen (Tylenol Tab) 650 mg Q6H PRN PO .PAIN 1-3 OR TEMP; Start 01/13/19 at 17:30 Docusate Sodium (Colace) 100 mg Q12H PRN PO .CONSTIPATION; Start 01/13/19 at 17:30 Magnesium Hydroxide (Milk Of Mag) 30 ml DAILY PRN PO .CONSTIPATION; Start 01/13/19 at 17:30 Famotidine (Pepcid) 20 mg Q12 PO Last administered on 01/18/19 08:57; Admin Dose 20 MG; Start 01/13/19 at 21:00 Nicotine (Nicoderm 21 Mg/ 24hr) 1 patch DAILY TRANSDERM Last administered on 01/18/19 08:58; Admin Dose 1 PATCH; Start 01/13/19 at 18:30 Acetaminophen/ Hydrocodone Bitart ([place] (10/325)) 1 tab Q6H PRN PO SEVERE PAIN LEVEL 7-10 Last administered on 01/18/19 15:51; Admin Dose 1 TAB; Start 01/15/19 at 18:30 Hydromorphone HCl (Dilaudid) 0.5 mg Q4H PRN IV SEVERE PAIN LEVEL 7-10 Last administered on 01/18/19 17:26; Admin Dose 0.5 MG; Start 01/15/19 at 18:30 Cefepime HCl 50 ml @ 100 mls/hr Q12 IVPB Last administered on 01/18/19 08:58; Admin Dose 100 MLS/HR; Start 01/16/19 at 21:00 Vancomycin HCl (Vanco Iv Per Pharmacy) VANCOMYCIN PER PHARMACY PER PROTOCOL XX ; Start 01/16/19 at 18:30 Vancomycin HCl 1.75 gm/Sodium Chloride 500 ml @ 125 mls/hr Q12H IVPB ; Start 01/18/19 at 22:00 Allergies: Coded Allergies: No Known Allergies (Verified Allergy, 05/24/12) Past Surgical History Past Surgical Hx: other (ELSA with BSO, hernia repair) Social History Alcohol Use: none Smoking Status: Current every day smoker Drug Use: other (Methamphetamine) Exam/Review of Systems Exam Vitals Vital Signs Date Temp Pulse Resp B/P (MAP) Pulse Ox O2 O2 Flow FiO2 Time Delivery Rate 01/18/19 98.3 94 18 125/68 95 Room Air 14:10 (87) Intake and Output 01/17/19 01/17/19 01/18/19 1515:00 23:00 07:00 IntakeIntake Total 660 ml 1210 ml 250 ml BalanceBalance 660 ml 1210 ml 250 ml Exam MUSCULOSKELETAL: Right chest and arm: Skin is intact. There is no fluctuant mass. There is prominence of the right medial clavicle. There is tenderness palpation over the right SC joint. No pain with range of motion of the shoulder. Sensation intact to light touch in a median, ulnar, radial, and axillary distribution. Motor is intact in a median, ulnar, radial, anterior interosseous, and posterior interosseous nerve distribution. Radial and ulnar artery are +2. Wrist extension and flexion are intact. Compartments are soft. Results Result Diagram: 01/18/19 0428 01/18/19 0428 Results 24hrs Laboratory Tests Test 01/18/19 04:28 01/18/19 08:36 White Blood Count 10.8 Red Blood Count 4.95 Hemoglobin 12.5 Hematocrit 40.3 Mean Corpuscular Volume 81.4 L Mean Corpuscular Hemoglobin 25.3 L Mean Corpuscular Hemoglobin Concent 31.0 L Red Cell Distribution Width 13.2 Platelet Count 551 H Mean Platelet Volume 9.2 Immature Granulocytes % 0.700 H Neutrophils % 72.4 Lymphocytes % 16.9 Monocytes % 6.7 Eosinophils % 2.7 Basophils % 0.6 Nucleated Red Blood Cells % 0.0 Immature Granulocytes # 0.080 H Neutrophils # 7.8 H Lymphocytes # 1.8 Monocytes # 0.7 Eosinophils # 0.3 Basophils # 0.1 Nucleated Red Blood Cells # 0.0 Sodium Level 139 Potassium Level 4.5 Chloride Level 99 Carbon Dioxide Level 32 H Anion Gap 8 Blood Urea Nitrogen 13 Creatinine 0.67 Est Glomerular Filtrat Rate mL/min > 60 Glucose Level 117 Calcium Level 8.6 Phosphorus Level 4.6 Magnesium Level 2.1 Vancomycin Level Trough 10.1 Imaging Imaging 1. Extensive inflammatory changes centered around the right sternoclavicular joint with abnormal bone marrow signal of the medial aspect of the right clavicle without destructive osseous changes. The findings are suggestive of infectious/inflammatory arthropathy of the right sternoclavicular joint with reactive changes in the soft tissues. 2. Asymmetrically enlarged and edematous appearance of right pectoral and sternocleidomastoid muscles with surrounding soft tissue inflammation in keeping with myositis/cellulitis. No drainable abscess formation is identified Medications Medication Current Medications Ferrous Sulfate (Ferrous Sulfate (Ec)) 325 mg DAILY PO Last administered on 01/18/19 08:57; Admin Dose 325 MG; Start 01/13/19 at 17:30 IV Flush (NS 3 ml) 3 ml PER PROTOCOL IV ; Start 01/13/19 at 17:30 Ondansetron HCl (Zofran Inj) 4 mg Q6H PRN IV NAUSEA/VOMITING; Start 01/13/19 at 17:30 Acetaminophen (Tylenol Tab) 650 mg Q6H PRN PO .PAIN 1-3 OR TEMP; Start 01/13/19 at 17:30 Docusate Sodium (Colace) 100 mg Q12H PRN PO .CONSTIPATION; Start 01/13/19 at 17:30 Magnesium Hydroxide (Milk Of Mag) 30 ml DAILY PRN PO .CONSTIPATION; Start 01/13/19 at 17:30 Famotidine (Pepcid) 20 mg Q12 PO Last administered on 01/18/19at 08:57; Admin Dose 20 MG; Start 01/13/19 at 21:00 Nicotine (Nicoderm 21 Mg/ 24hr) 1 patch DAILY TRANSDERM Last administered on 01/18/19at 08:58; Admin Dose 1 PATCH; Start 01/13/19 at 18:30 Acetaminophen/ Hydrocodone Bitart ([place] (10/325)) 1 tab Q6H PRN PO SEVERE PAIN LEVEL 7-10 Last administered on 01/18/19at 15:51; Admin Dose 1 TAB; Start 01/15/19 at 18:30 Hydromorphone HCl (Dilaudid) 0.5 mg Q4H PRN IV SEVERE PAIN LEVEL 7-10 Last administered on 01/18/19at 17:26; Admin Dose 0.5 MG; Start 01/15/19 at 18:30 Cefepime HCl 50 ml @ 100 mls/hr Q12 IVPB Last administered on 01/18/19at 08:58; Admin Dose 100 MLS/HR; Start 01/16/19 at 21:00 Vancomycin HCl (Vanco Iv Per Pharmacy) VANCOMYCIN PER PHARMACY PER PROTOCOL XX ; Start 01/16/19 at 18:30 Vancomycin HCl 1.75 gm/Sodium Chloride 500 ml @ 125 mls/hr Q12H IVPB ; Start 01/18/19 at 22:00 TASHA BRIGGS MD Jan 18, 2019 18:44
[2019-01-18 20:00] VITALS: BP 124/60; PULSE 88; RESP 18
[2019-01-18] MEDS: VANCOMYCIN HCL 1.75 GM in SOD CHLORIDE 0.9% 500 ML IVPB SCH (23:05)
[2019-01-19 02:00] VITALS: BP 132/79; PULSE 86; RESP 18
[2019-01-19] MEDS: HYDROmorphONE 0.5 MG/0.5 ML SYG IV PRN ×6 (02:10→22:54)
[2019-01-19 07:52] VITALS: BP 121/73; PULSE 73; RESP 18
[2019-01-19] MEDS: CEFEPIME 1GM/50 ML (PMX) 50 ML IVPB SCH ×2 (08:47→20:11)
[2019-01-19] MEDS: FAMOTIDINE 20 MG TAB PO SCH ×2 (08:47→20:11)
[2019-01-19] MEDS: FERROUS SULFATE (EC) 325 MG TAB PO SCH (08:47)
[2019-01-19] MEDS: NICOTINE (21 MG/24 HR) PATCH TRANSDERM SCH (08:48)
[2019-01-19] MEDS: HYDROCODONE/APAP (10/325) TAB PO PRN ×2 (08:59→18:11)
[2019-01-19] MEDS: VANCOMYCIN HCL 1.75 GM in SOD CHLORIDE 0.9% 500 ML IVPB SCH ×2 (10:10→22:05)
--- NOTE | 2019-01-19 12:30 | CONS ---
Assessment/Plan Assessment/Plan Hospital Course (Demo Recall) No events, looks comfortable, no fevers Antimicrobials: Vancomycin, cefepime Diagnostic: MRI of neck with and without IV contrast revealed 1. Extensive inflammatory changes centered around the right sternoclavicular joint with abnormal bone marrow signal of the medial aspect of the right c lavicle without destructive osseous changes. The findings are suggestive of infectious/inflammatory arthropathy of the right sternoclavicular joint with reactive changes in the soft tissues. If there is clinical concern for osteomyelitis, short-term MRI follow-up is recommended. 2. Asymmetrically enlarged and edematous appearance of right pectoral and sternocleidomastoid muscles with surrounding soft tissue inflammation in keeping with myositis/cellulitis. No drainable abscess formation is identified. Physical examination: This is a morbidly obese well-developed middle-aged woman who is awake in no distress. Head atraumatic normocephalic sclera nonicteric. Neck is obese. Chest rise symmetrical breath sounds diminished at bases. Heart: S1-S2. Abdomen soft bowel sounds present. Extremities without cyanosis. Assessment: 1. Right sternoclavicular osteomyelitis 2. Morbid obesity 3. Methamphetamine abuse Plan: Ortho rec-s noted, pt needs to be continued on IV abx for 6 weeks, she is not a candidate for outpatient PICC 2 to [facility] to arrange placement Consultation Date/Type/Reason Admit Date/Time Jan 13, 2019 at 16:53 Initial Consult Date Type of Consult id Date/Time of Note DATE: 01/19/19 TIME: 12:25 Exam/Review of Systems Exam Vitals Vital Signs Date Temp Pulse Resp B/P (MAP) Pulse Ox O2 O2 Flow FiO2 Time Delivery Rate 01/19/19 98.6 73 18 121/73 96 Room Air 07:52 (89) Intake and Output 01/18/19 01/18/19 01/19/19 1515:00 23:00 07:00 IntakeIntake Total 2060 ml 1250 ml 500 ml BalanceBalance 2060 ml 1250 ml 500 ml Results Result Diagram: 01/19/19 0427 01/19/19 0427 Results 24hrs Laboratory Tests Test 01/19/19 04:27 White Blood Count 8.6 # Red Blood Count 4.91 Hemoglobin 12.2 Hematocrit 39.9 Mean Corpuscular Volume 81.3 L Mean Corpuscular Hemoglobin 24.8 L Mean Corpuscular Hemoglobin Concent 30.6 L Red Cell Distribution Width 13.5 Platelet Count 574 H Mean Platelet Volume 9.0 Immature Granulocytes % 0.700 H Neutrophils % 70.4 Lymphocytes % 19.5 Monocytes % 5.7 Eosinophils % 3.1 Basophils % 0.6 Nucleated Red Blood Cells % 0.0 Immature Granulocytes # 0.060 H Neutrophils # 6.1 Lymphocytes # 1.7 Monocytes # 0.5 Eosinophils # 0.3 Basophils # 0.1 Nucleated Red Blood Cells # 0.0 Sodium Level 138 Potassium Level 4.7 Chloride Level 100 Carbon Dioxide Level 31 Anion Gap 7 Blood Urea Nitrogen 15 Creatinine 0.67 Est Glomerular Filtrat Rate mL/min > 60 Glucose Level 119 Calcium Level 8.6 Phosphorus Level 4.2 Magnesium Level 2.0 Medications Medication Current Medications Ferrous Sulfate (Ferrous Sulfate (Ec)) 325 mg DAILY PO Last administered on 01/19/19 08:47; Admin Dose 325 MG; Start 01/13/19 at 17:30 IV Flush (NS 3 ml) 3 ml PER PROTOCOL IV ; Start 01/13/19 at 17:30 Ondansetron HCl (Zofran Inj) 4 mg Q6H PRN IV NAUSEA/VOMITING; Start 01/13/19 at 17:30 Acetaminophen (Tylenol Tab) 650 mg Q6H PRN PO .PAIN 1-3 OR TEMP; Start 01/13/19 at 17:30 Docusate Sodium (Colace) 100 mg Q12H PRN PO .CONSTIPATION; Start 01/13/19 at 17:30 Magnesium Hydroxide (Milk Of Mag) 30 ml DAILY PRN PO .CONSTIPATION; Start 01/13/19 at 17:30 Famotidine (Pepcid) 20 mg Q12 PO Last administered on 01/19/19at 08:47; Admin Dose 20 MG; Start 01/13/19 at 21:00 Nicotine (Nicoderm 21 Mg/ 24hr) 1 patch DAILY TRANSDERM Last administered on 01/19/19at 08:48; Admin Dose 1 PATCH; Start 01/13/19 at 18:30 Acetaminophen/ Hydrocodone Bitart ([place] (10/325)) 1 tab Q6H PRN PO SEVERE PAIN LEVEL 7-10 Last administered on 01/19/19at 08:59; Admin Dose 1 TAB; Start 01/15/19 at 18:30 Hydromorphone HCl (Dilaudid) 0.5 mg Q4H PRN IV SEVERE PAIN LEVEL 7-10 Last administered on 01/19/19at 10:45; Admin Dose 0.5 MG; Start 01/15/19 at 18:30 Cefepime HCl 50 ml @ 100 mls/hr Q12 IVPB Last administered on 01/19/19at 08:47; Admin Dose 100 MLS/HR; Start 01/16/19 at 21:00 Vancomycin HCl (Vanco Iv Per Pharmacy) VANCOMYCIN PER PHARMACY PER PROTOCOL XX ; Start 01/16/19 at 18:30 Vancomycin HCl 1.75 gm/Sodium Chloride 500 ml @ 125 mls/hr Q12H IVPB Last administered on 01/19/19at 10:10; Admin Dose 125 MLS/HR; Start 01/18/19 at 22:00 TATIANA POTTER NP Jan 19, 2019 12:30
[2019-01-19 14:10] VITALS: BP 128/66; PULSE 91; RESP 18
--- NOTE | 2019-01-19 16:44 | PN ---
Date/Time of Note Date/Time of Note DATE: 01/19/19 TIME: 16:43 Objective Vitals Vital Signs Date Temp Pulse Resp B/P (MAP) Pulse Ox O2 O2 Flow FiO2 Time Delivery Rate 01/19/19 98.3 91 18 128/66 95 14:10 (86) 01/19/19 Room Air 07:52 Intake and Output 01/18/19 01/18/19 01/19/19 1515:00 23:00 07:00 IntakeIntake Total 2060 ml 1250 ml 500 ml BalanceBalance 2060 ml 1250 ml 500 ml Results Result Diagram: 01/19/197 01/19/19426 Medications Medications Current Medications Ferrous Sulfate (Ferrous Sulfate (Ec)) 325 mg DAILY PO Last administered on 01/19/19at 08:47; Admin Dose 325 MG; Start 01/13/19 at 17:30 IV Flush (NS 3 ml) 3 ml PER PROTOCOL IV ; Start 01/13/19 at 17:30 Ondansetron HCl (Zofran Inj) 4 mg Q6H PRN IV NAUSEA/VOMITING; Start 01/13/19 at 17:30 Acetaminophen (Tylenol Tab) 650 mg Q6H PRN PO .PAIN 1-3 OR TEMP; Start 01/13/19 at 17:30 Docusate Sodium (Colace) 100 mg Q12H PRN PO .CONSTIPATION; Start 01/13/19 at 17:30 Magnesium Hydroxide (Milk Of Mag) 30 ml DAILY PRN PO .CONSTIPATION; Start 01/13/19 at 17:30 Famotidine (Pepcid) 20 mg Q12 PO Last administered on 01/19/19at 08:47; Admin Dose 20 MG; Start 01/13/19 at 21:00 Nicotine (Nicoderm 21 Mg/ 24hr) 1 patch DAILY TRANSDERM Last administered on 01/19/19at 08:48; Admin Dose 1 PATCH; Start 01/13/19 at 18:30 Acetaminophen/ Hydrocodone Bitart ([place] ([address]25)) 1 tab Q6H PRN PO SEVERE PAIN LEVEL 7-10 Last administered on 01/19/19at 08:59; Admin Dose 1 TAB; Start 01/15/19 at 18:30 Hydromorphone HCl (Dilaudid) 0.5 mg Q4H PRN IV SEVERE PAIN LEVEL 7-10 Last administered on 01/19/19at 15:12; Admin Dose 0.5 MG; Start 01/15/19 at 18:30 Cefepime HCl 50 ml @ 100 mls/hr Q12 IVPB Last administered on 01/19/19at 08:47; Admin Dose 100 MLS/HR; Start 01/16/19 at 21:00 Vancomycin HCl (Vanco Iv Per Pharmacy) VANCOMYCIN PER PHARMACY PER PROTOCOL XX ; Start 01/16/19 at 18:30 Vancomycin HCl 1.75 gm/Sodium Chloride 500 ml @ 125 mls/hr Q12H IVPB Last administered on 01/19/19at 10:10; Admin Dose 125 MLS/HR; Start 01/18/19 at 22:00 Miscellaneous Information (*Rx Drug Level Order Reminder*) VANCO TROUGH @ 0,900 0900 ONCE XX ; Start 01/20/19 at 09:00; Stop 01/20/19 at 09:01 VTE Prophylaxis Risk score ([place] [facility] [place]0 risk: 2 SCD applied (from [facility] [place]): Yes Lines/Catheters IV Catheter Type: Fletcher in Place: No Assessment/Plan Hospital Course Subjective Patient stating neck pain has subsided somewhat Objective Physical exam General: Patient is laying in bed and answers questions appropriately Mentation: Patient is alert and oriented 4, Head: Normocephalic atraumatic Eyes: EOMI, pupils reactive to light Neck: Supple, nontender, midline Respiratory: Clear to auscultation bilaterally Cardiovascular: regular rate, no obvious murmurs Gastrointestinal: non-tender to palpation, bowel sounds heard. 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 Microcytic anemia - iron levels noted - continue on home iron supplementation - Hgb stable 4. Tobacco abuse - nicotine patch - offered cessation counseling 5. Meth abuse - counseled about cessation -Patient does have a history of IV meth use as recent as 2 weeks before admission 6. Transaminitis - US RUQ shows fatty liver - LFT trending down - Hepatitis panel negative 7. Disposition -Patient will likely need long-term IV antibiotics, case technician notified that patient will likely need placement given history of IV meth use, we can not send her out in the community with a PICC line. KAYLYNN PEREZ Jan 19, 2019 16:44
[2019-01-19 19:47] VITALS: BP 128/59; PULSE 88; RESP 18
[2019-01-20 02:08] VITALS: BP 106/64; PULSE 80; RESP 16
[2019-01-20] MEDS: HYDROmorphONE 0.5 MG/0.5 ML SYG IV PRN ×4 (03:22→18:23)
[2019-01-20] MEDS: HYDROCODONE/APAP (10/325) TAB PO PRN ×2 (06:34→16:41)
[2019-01-20 07:49] VITALS: BP 129/58; PULSE 78; RESP 18
[2019-01-20] MEDS: FAMOTIDINE 20 MG TAB PO SCH ×2 (08:10→20:30)
[2019-01-20] MEDS: FERROUS SULFATE (EC) 325 MG TAB PO SCH (08:10)
[2019-01-20] MEDS: CEFEPIME 1GM/50 ML (PMX) 50 ML IVPB SCH ×2 (08:10→20:30)
[2019-01-20] MEDS: NICOTINE (21 MG/24 HR) PATCH TRANSDERM SCH (08:10)
--- NOTE | 2019-01-20 11:06 | CONS ---
Assessment/Plan Assessment/Plan Hospital Course (Demo Recall) No events per report, looks comfortable Antimicrobials: Vancomycin, cefepime Diagnostic: MRI of neck with and without IV contrast revealed 1. Extensive inflammatory changes centered around the right sternoclavicular joint with abnormal bone marrow signal of the medial aspect of the right clavicle without destructive osseous changes. The findings are suggestive of infectious/inflammatory arthropathy of the right sternoclavicular joint with reactive changes in the soft tissues. If there is clinical concern for osteomyelitis, short-term MRI follow-up is recommended. 2. Asymmetrically enlarged and edematous appearance of right pectoral and sternocleidomastoid muscles with surrounding soft tissue inflammation in keeping with myositis/cellulitis. No drainable abscess formation is identified. Physical examination: This is a morbidly obese well-developed middle-aged woman who is awake in no distress. Head atraumatic normocephalic sclera nonicteric. Neck is obese. Chest rise symmetrical breath sounds diminished at bases. Heart: S1-S2. Abdomen soft bowel sounds present. Extremities without cyanosis. Assessment: 1. Right sternoclavicular osteomyelitis 2. Morbid obesity 3. Methamphetamine abuse Plan: Remains unchanged, Ortho rec-s noted, pt needs to be continued on IV abx for 6 weeks, she is not a candidate for outpatient PICC 2 to [facility] to arrange placement Consultation Date/Type/Reason Admit Date/Time Jan 13, 2019 at 16:53 Initial Consult Date Type of Consult id Date/Time of Note DATE: 01/20/19 TIME: 11:05 Exam/Review of Systems Exam Vitals Vital Signs Date Temp Pulse Resp B/P (MAP) Pulse Ox O2 O2 Flow FiO2 Time Delivery Rate 01/20/19 97.9 78 18 129/58 94 Room Air 07:49 (81) Intake and Output 01/19/19 01/19/19 01/20/19 1414:59 22:59 06:59 IntakeIntake Total 1080 ml 1080 ml 500 ml BalanceBalance 1080 ml 1080 ml 500 ml Results Result Diagram: 01/20/19 0432 01/20/19 0432 Results 24hrs Laboratory Tests Test 01/20/19 04:32 01/20/19 08:54 White Blood Count 8.1 Red Blood Count 4.98 Hemoglobin 12.4 Hematocrit 40.9 Mean Corpuscular Volume 82.1 Mean Corpuscular Hemoglobin 24.9 L Mean Corpuscular Hemoglobin Concent 30.3 L Red Cell Distribution Width 13.2 Platelet Count 548 H Mean Platelet Volume 9.0 Immature Granulocytes % 0.600 H Neutrophils % 65.8 Lymphocytes % 22.8 Monocytes % 6.5 Eosinophils % 3.7 Basophils % 0.6 Nucleated Red Blood Cells % 0.0 Immature Granulocytes # 0.050 H Neutrophils # 5.3 Lymphocytes # 1.9 Monocytes # 0.5 Eosinophils # 0.3 Basophils # 0.1 Nucleated Red Blood Cells # 0.0 Sodium Level 139 Potassium Level 4.9 Chloride Level 101 Carbon Dioxide Level 29 Anion Gap 9 Blood Urea Nitrogen 16 Creatinine 0.69 Est Glomerular Filtrat Rate mL/min > 60 Glucose Level 104 Calcium Level 8.7 Phosphorus Level 4.4 Magnesium Level 2.1 Vancomycin Level Trough 20.4 *H Medications Medication Current Medications Ferrous Sulfate (Ferrous Sulfate (Ec)) 325 mg DAILY PO Last administered on 01/20/19 08:10; Admin Dose 325 MG; Start 01/13/19 at 17:30 IV Flush (NS 3 ml) 3 ml PER PROTOCOL IV ; Start 01/13/19 at 17:30 Ondansetron HCl (Zofran Inj) 4 mg Q6H PRN IV NAUSEA/VOMITING; Start 01/13/19 at 17:30 Acetaminophen (Tylenol Tab) 650 mg Q6H PRN PO .PAIN 1-3 OR TEMP; Start 01/13/19 at 17:30 Docusate Sodium (Colace) 100 mg Q12H PRN PO .CONSTIPATION; Start 01/13/19 at 17:30 Magnesium Hydroxide (Milk Of Mag) 30 ml DAILY PRN PO .CONSTIPATION; Start 01/13/19 at 17:30 Famotidine (Pepcid) 20 mg Q12 PO Last administered on 01/20/19 08:10; Admin Do se 20 MG; Start 01/13/19 at 21:00 Nicotine (Nicoderm 21 Mg/ 24hr) 1 patch DAILY TRANSDERM Last administered on 01/20/19at 08:10; Admin Dose 1 PATCH; Start 01/13/19 at 18:30 Acetaminophen/ Hydrocodone Bitart ([place] (10/325)) 1 tab Q6H PRN PO SEVERE PAIN LEVEL 7-10 Last administered on 01/20/19at 06:34; Admin Dose 1 TAB; Start 01/15/19 at 18:30 Hydromorphone HCl (Dilaudid) 0.5 mg Q4H PRN IV SEVERE PAIN LEVEL 7-10 Last administered on 01/20/19at 08:12; Admin Dose 0.5 MG; Start 01/15/19 at 18:30 Cefepime HCl 50 ml @ 100 mls/hr Q12 IVPB Last administered on 01/20/19at 08:10; Admin Dose 100 MLS/HR; Start 01/16/19 at 21:00 Vancomycin HCl (Vanco Iv Per Pharmacy) VANCOMYCIN PER PHARMACY PER PROTOCOL XX ; Start 01/16/19 at 18:30 Vancomycin HCl 1.25 gm/Sodium Chloride 250 ml @ 83.333 mls/ hr Q12H IVPB ; Start 01/20/19 at 13:00 TATIANA POTTER NP Jan 20, 2019 11:06
--- NOTE | 2019-01-20 12:40 | PN ---
Date/Time of Note Date/Time of Note DATE: 01/20/19 TIME: 12:40 Objective Vitals Vital Signs Date Temp Pulse Resp B/P (MAP) Pulse Ox O2 O2 Flow FiO2 Time Delivery Rate 01/20/19 97.9 78 18 129/58 94 Room Air 07:49 (81) Intake and Output 01/19/19 01/19/19 01/20/19 1515:00 23:00 07:00 IntakeIntake Total 1080 ml 1080 ml 500 ml BalanceBalance 1080 ml 1080 ml 500 ml Results Result Diagram: 01/20/192 01/20/19 043 Medications Medications Current Medications Ferrous Sulfate (Ferrous Sulfate (Ec)) 325 mg DAILY PO Last administered on 01/20/19 08:10; Admin Dose 325 MG; Start 01/13/19 at 17:30 IV Flush (NS 3 ml) 3 ml PER PROTOCOL IV ; Start 01/13/19 at 17:30 Ondansetron HCl (Zofran Inj) 4 mg Q6H PRN IV NAUSEA/VOMITING; Start 01/13/19 at 17:30 Acetaminophen (Tylenol Tab) 650 mg Q6H PRN PO .PAIN 1-3 OR TEMP; Start 01/13/19 at 17:30 Docusate Sodium (Colace) 100 mg Q12H PRN PO .CONSTIPATION; Start 01/13/19 at 17:30 Magnesium Hydroxide (Milk Of Mag) 30 ml DAILY PRN PO .CONSTIPATION; Start 01/13/19 at 17:30 Famotidine (Pepcid) 20 mg Q12 PO Last administered on 01/20/19 08:10; Admin Dose 20 MG; Start 01/13/19 at 21:00 Nicotine (Nicoderm 21 Mg/ 24hr) 1 patch DAILY TRANSDERM Last administered on 01/20/19 08:10; Admin Dose 1 PATCH; Start 01/13/19 at 18:30 Acetaminophen/ Hydrocodone Bitart ([place] (10/325)) 1 tab Q6H PRN PO SEVERE PAIN LEVEL 7-10 Last administered on 01/20/19 06:34; Admin Dose 1 TAB; Start 01/15/19 at 18:30 Hydromorphone HCl (Dilaudid) 0.5 mg Q4H PRN IV SEVERE PAIN LEVEL 7-10 Last administered on 4/12/19at 08:12; Admin Dose 0.5 MG; Start 01/15/19 at 18:30 Cefepime HCl 50 ml @ 100 mls/hr Q12 IVPB Last administered on 01/20/19at 08:10; Admin Dose 100 MLS/HR; Start 01/16/19 at 21:00 Vancomycin HCl (Vanco Iv Per Pharmacy) VANCOMYCIN PER PHARMACY PER PROTOCOL XX ; Start 01/16/19 at 18:30 Vancomycin HCl 1.25 gm/Sodium Chloride 250 ml @ 83.333 mls/ hr Q12H IVPB ; Start 01/20/19 at 13:00 VTE Prophylaxis Risk score (from Ns)>0 risk: 2 SCD applied (from [facility] [place]): Yes Lines/Catheters IV Catheter Type: Fletcher in Place: No Assessment/Plan Hospital Course Subjective Patient stating neck pain has subsided even more Objective Physical exam General: Patient is laying in bed and answers questions appropriately Mentation: Patient is alert and oriented 4, Head: Normocephalic atraumatic Eyes: EOMI, pupils reactive to light Neck: Supple, nontender, midline Respiratory: Clear to auscultation bilaterally Cardiovascular: regular rate, no obvious murmurs Gastrointestinal: non-tender to palpation, bowel sounds heard. 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 -What appeared to be a mass on CT on MRI turned out to be possible osteomyelitis , orthopedic surgery consulted, stated needs abx, however due to location will also consult cardiothoracic surgery if surgical debridement is needed -IV antibiotic, broad-spectrum -Infectious disease already on board -Pain medication 3. Microcytic anemia - iron levels noted - continue on home iron supplementation - Hgb stable 4. Tobacco abuse - nicotine patch - offered cessation counseling 5. Meth abuse - counseled about cessation -Patient does have a history of IV meth use as recent as 2 weeks before admission 6. Transaminitis - US RUQ shows fatty liver - LFT trending down - Hepatitis panel negative 7. Disposition -Patient will likely need long-term IV antibiotics, watch caser notified that patient will likely need placement given history of IV meth use, we can not send her out in the community with a PICC line. KAYLYNN PEREZ Jan 20, 2019 12:40
[2019-01-20] MEDS: VANCOMYCIN HCL 1.25 GM in SOD CHLORIDE 0.9% 250 ML IVPB SCH (13:49)
[2019-01-20] MEDS ORDERED: VANCOMYCIN HCL 1.5 GM in SOD CHLORIDE 0.9% 250 ML IVPB SCH (14:00)
[2019-01-20 15:53] VITALS: BP 132/70; PULSE 80; RESP 18
[2019-01-20 19:30] VITALS: BP 140/82; PULSE 101; RESP 16
[2019-01-21] MEDS: HYDROmorphONE 0.5 MG/0.5 ML SYG IV PRN ×3 (00:39→10:00)
[2019-01-21] MEDS: VANCOMYCIN HCL 1.25 GM in SOD CHLORIDE 0.9% 250 ML IVPB SCH ×2 (00:56→13:18)
[2019-01-21] MEDS: HYDROCODONE/APAP (10/325) TAB PO PRN (01:40)
[2019-01-21 01:52] VITALS: BP 128/67; PULSE 89; RESP 20
[2019-01-21 07:23] VITALS: BP 119/64; PULSE 79; RESP 18
[2019-01-21] MEDS: FAMOTIDINE 20 MG TAB PO SCH ×2 (09:10→20:04)
[2019-01-21] MEDS: FERROUS SULFATE (EC) 325 MG TAB PO SCH (09:10)
[2019-01-21] MEDS: NICOTINE (21 MG/24 HR) PATCH TRANSDERM SCH (09:10)
[2019-01-21] MEDS: CEFEPIME 1GM/50 ML (PMX) 50 ML IVPB SCH ×2 (09:13→20:05)
[2019-01-21] MEDS ORDERED: LIDOCAINE 1% (MPF) 5 ML VIAL SC ONE (12:00)
[2019-01-21] MEDS: OXYCODONE/ACETAMINOPHEN (10/325) TAB PO PRN ×2 (13:47→20:04)
--- NOTE | 2019-01-21 14:19 | PN ---
Date/Time of Note Date/Time of Note DATE: 01/21/19 TIME: 14:19 Objective Vitals Vital Signs Date Temp Pulse Resp B/P (MAP) Pulse Ox O2 O2 Flow FiO2 Time Delivery Rate 01/21/19 98.2 79 18 119/64 98 07:23 (82) 01/20/19 Room Air 15:53 Intake and Output 01/20/19 01/20/19 01/21/19 1515:00 23:00 07:00 IntakeIntake Total 890 ml 730 ml 300 ml BalanceBalance 890 ml 730 ml 300 ml Results Result Diagram: 01/20/1943101/20/19431 Medications Medications Current Medications Ferrous Sulfate (Ferrous Sulfate (Ec)) 325 mg DAILY PO Last administered on 01/21/19 09:10; Admin Dose 325 MG; Start 01/13/19 at 17:30 IV Flush (NS 3 ml) 3 ml PER PROTOCOL IV ; Start 01/13/19 at 17:30 Ondansetron HCl (Zofran Inj) 4 mg Q6H PRN IV NAUSEA/VOMITING; Start 01/13/19 at 17:30 Acetaminophen (Tylenol Tab) 650 mg Q6H PRN PO .PAIN 1-3 OR TEMP; Start 01/13/19 at 17:30 Docusate Sodium (Colace) 100 mg Q12H PRN PO .CONSTIPATION; Start 01/13/19 at 17:30 Magnesium Hydroxide (Milk Of Mag) 30 ml DAILY PRN PO .CONSTIPATION; Start 01/13/19 at 17:30 Famotidine (Pepcid) 20 mg Q12 PO Last administered on 01/21/19at 09:10; Admin Dose 20 MG; Start 01/13/19 at 21:00 Nicotine (Nicoderm 21 Mg/ 24hr) 1 patch DAILY TRANSDERM Last administered on 01/21/19 09:10; Admin Dose 1 PATCH; Start 01/13/19 at 18:30 Acetaminophen/ Hydrocodone Bitart ([place] (10325)) 1 tab Q6H PRN PO pain 4-6 Last administered on 01/21/19 01:40; Admin Dose 1 TAB; Start 01/15/19 at 18:30 Cefepime HCl 50 ml @ 100 mls/hr Q12 IVPB Last administered on 4/13/19at 09:13; Admin Dose 100 MLS/HR; Start 01/16/19 at 21:00 Vancomycin HCl (Vanco Iv Per Pharmacy) VANCOMYCIN PER PHARMACY PER PROTOCOL XX ; Start 01/16/19 at 18:30 Vancomycin HCl 1.25 gm/Sodium Chloride 250 ml @ 83.333 mls/ hr Q12H IVPB Last administered on 01/21/19at 13:18; Admin Dose 83.333 MLS/HR; Start 01/20/19 at 13:00 Miscellaneous Information (*Rx Drug Level Order Reminder*) VANCO TROUGH ON 01/09... 1200 ONCE XX ; Start 01/22/19 at 12:00; Stop 01/22/19 at 12:01 Oxycodone/ Acetaminophen (Endocet (10 325)) 1 tab Q6H PRN PO pain 7-10 Last administered on 01/21/19at 13:47; Admin Dose 1 TAB; Start 01/21/19 at 12:00 VTE Prophylaxis Risk score (from Ns)>0 risk: 2 SCD applied (from Ns): Yes Lines/Catheters IV Catheter Type: Fletcher in Place: No Assessment/Plan Hospital Course Subjective Patient stating neck pain is stable, no acute events overnight Objective Physical exam General: Patient is laying in bed and answers questions appropriately Mentation: Patient is alert and oriented 4, Head: Normocephalic atraumatic Eyes: EOMI, pupils reactive to light Neck: Supple, nontender, midline Respiratory: Clear to auscultation bilaterally Cardiovascular: regular rate, no obvious murmurs Gastrointestinal: non-tender to palpation, bowel sounds heard. 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 Microcytic anemia - iron levels noted - continue on home iron supplementation - Hgb stable 4. Tobacco abuse - nicotine patch - offered cessation counseling 5. Meth abuse - counseled about cessation -Patient does have a history of IV meth use as recent as 2 weeks before admission 6. Transaminitis - US RUQ shows fatty liver - LFT trending down - Hepatitis panel negative 7. Disposition -Patient will likely need long-term IV antibiotics, family service caseworker notified that patient will likely need placement given history of IV meth use, we can not send her out in the community with a PICC line. KAYLYNN PEREZ Jan 21, 2019 14:19
[2019-01-21 14:38] VITALS: BP 125/69; PULSE 85; RESP 18
--- NOTE | 2019-01-21 16:21 | CONS ---
Consultation Date/Type/Reason Admit Date/Time Jan 13, 2019 at 16:53 Initial Consult Date SUBJECTIVE: Pt is awake, afebrile, looks comfortable. VS: stable T: 98.1 LABS: Reviewed. Antimicrobials: Vancomycin, cefepime Diagnostic: MRI of neck with and without IV contrast revealed 1. Extensive inflammatory changes centered around the right sternoclavicular joint with abnormal bone marrow signal of the medial aspect of the right clavicle without destructive osseous changes. The findings are suggestive of infectious/inflammatory arthropathy of the right sternoclavicular joint with reactive changes in the soft tissues. If there is clinical concern for osteomyelitis, short-term MRI follow-up is recommended. 2. Asymmetrically enlarged and edematous appearance of right pectoral and sternocleidomastoid muscles with surrounding soft tissue inflammation in keeping with myositis/cellulitis. No drainable abscess formation is identified. Physical examination: GEN: This is a morbidly obese well-developed, middle-aged woman, who is awake in no distress. HENT: Head atraumatic normocephalic, sclera nonicteric. Neck is obese. PULM: Chest rise symmetrical, breath sounds diminished at bases. Heart: S1-S2. Abdomen: soft bowel sounds present. Extremities: no cyanosis. Assessment: 1. Right sternoclavicular osteomyelitis 2. Morbid obesity 3. Methamphetamine abuse Plan: Pt remains stable. Ortho rec-s noted. Pt needs to be continued on IV abx for 6 weeks. She is not a candidate for outpatient PICC 2 to [facility]. Placement is pending. Date/Time of Note DATE: 01/21/19 TIME: 16:18 Exam/Review of Systems Exam Vitals Vital Signs Date Temp Pulse Resp B/P (MAP) Pulse Ox O2 O2 Flow FiO2 Time Delivery Rate 01/21/19 98.1 85 18 125/69 92 14:38 (87) 01/20/19 Room Air 15:53 Intake and Output 01/20/19 01/20/19 01/21/19 1515:00 23:00 07:00 IntakeIntake Total 890 ml 730 ml 300 ml BalanceBalance 890 ml 730 ml 300 ml Results Result Diagram: 01/20/19 0432 01/20/19 043 Medications Medication Current Medications Ferrous Sulfate (Ferrous Sulfate (Ec)) 325 mg DAILY PO Last administered on 01/21/19 09:10; Admin Dose 325 MG; Start 01/13/19 at 17:30 IV Flush (NS 3 ml) 3 ml PER PROTOCOL IV ; Start 01/13/19 at 17:30 Ondansetron HCl (Zofran Inj) 4 mg Q6H PRN IV NAUSEA/VOMITING; Start 01/13/19 at 17:30 Acetaminophen (Tylenol Tab) 650 mg Q6H PRN PO .PAIN 1-3 OR TEMP; Start 01/13/19 at 17:30 Docusate Sodium (Colace) 100 mg Q12H PRN PO .CONSTIPATION; Start 01/13/19 at 17:30 Magnesium Hydroxide (Milk Of Mag) 30 ml DAILY PRN PO .CONSTIPATION; Start 01/13/19 at 17:30 Famotidine (Pepcid) 20 mg Q12 PO Last administered on 01/21/19 09:10; Admin Dose 20 MG; Start 01/13/19 at 21:00 Nicotine (Nicoderm 21 Mg/ 24hr) 1 patch DAILY TRANSDERM Last administered on 01/21/19 09:10; Admin Dose 1 PATCH; Start 01/13/19 at 18:30 Acetaminophen/ Hydrocodone Bitart ([place] ()) 1 tab Q6H PRN PO pain 4-6 Last administered on 01/21/19 01:40; Admin Dose 1 TAB; Start 01/15/19 at 18:30 Cefepime HCl 50 ml @ 100 mls/hr Q12 IVPB Last administered on 01/21/19 09:13; Admin Dose 100 MLS/HR; Start 01/16/19 at 21:00 Vancomycin HCl (Vanco Iv Per Pharmacy) VANCOMYCIN PER PHARMACY PER PROTOCOL XX ; Start 01/16/19 at 18:30 Vancomycin HCl 1.25 gm/Sodium Chloride 250 ml @ 83.333 mls/ hr Q12H IVPB Last administered on 01/21/19 13:18; Admin Dose 83.333 MLS/HR; Start 01/20/19 at 13:00 Miscellaneous Information (*Rx Drug Level Order Reminder*) VANCO TROUGH ON 01/09... 1200 ONCE XX ; Start 01/22/19 at 12:00; Stop 01/22/19 at 12:01 Oxycodone/ Acetaminophen (Endocet ()) 1 tab Q6H PRN PO pain 7-10 Last administered on 01/21/19at 13:47; Admin Dose 1 TAB; Start 01/21/19 at 12:00 EDY DRUMMOND Jan 21, 2019 16:21
[2019-01-21 19:47] VITALS: BP 129/61; PULSE 88; RESP 18
[2019-01-22] MEDS: VANCOMYCIN HCL 1.25 GM in SOD CHLORIDE 0.9% 250 ML IVPB SCH (01:10)
[2019-01-22 02:00] VITALS: BP 113/60; PULSE 75; RESP 18
[2019-01-22] MEDS: OXYCODONE/ACETAMINOPHEN (10/325) TAB PO PRN ×2 (04:17→10:45)
[2019-01-22 08:06] VITALS: BP 117/88; PULSE 80; RESP 18
[2019-01-22] MEDS: FERROUS SULFATE (EC) 325 MG TAB PO SCH (08:56)
[2019-01-22] MEDS: FAMOTIDINE 20 MG TAB PO SCH ×2 (08:56→20:00)
[2019-01-22] MEDS: CEFEPIME 1GM/50 ML (PMX) 50 ML IVPB SCH ×2 (08:56→20:00)
[2019-01-22] MEDS: NICOTINE (21 MG/24 HR) PATCH TRANSDERM SCH (10:44)
--- NOTE | 2019-01-22 13:10 | CONS ---
Consultation Date/Type/Reason Admit Date/Time Jan 13, 2019 at 16:53 Initial Consult Date SUBJECTIVE: Pt is awake, looks comfortable. No acute events over night. VS: stable T: 97.9 LABS: Reviewed. WBC-8.3 Antimicrobials: Vancomycin, cefepime Diagnostic: MRI of neck with and without IV contrast revealed 1. Extensive inflammatory changes centered around the right sternoclavicular joint with abnormal bone marrow signal of the medial aspect of the right clavicle without destructive osseous changes. The findings are suggestive of infectious/inflammatory arthropathy of the right sternoclavicular joint with reactive changes in the soft tissues. If there is clinical concern for osteomyelitis, short-term MRI follow-up is recommended. 2. Asymmetrically enlarged and edematous appearance of right pectoral and sternocleidomastoid muscles with surrounding soft tissue inflammation in keeping with myositis/cellulitis. No drainable abscess formation is identified. Physical examination: GEN: This is a morbidly obese well-developed, middle-aged woman, who is awake in no distress. HENT: Head atraumatic normocephalic, sclera nonicteric. Neck is obese. PULM: Chest rise symmetrical, breath sounds diminished at bases. Heart: S1-S2. Abdomen: soft bowel sounds present. Extremities: no cyanosis. Assessment: 1. Right sternoclavicular osteomyelitis 2. Morbid obesity 3. Methamphetamine abuse Plan: Pt remains stable. Ortho rec-s noted. Pt needs to be continued on IV abx for 6 weeks. She is not a candidate for outpatient PICC 2 to [facility]. Placement is pending. Date/Time of Note DATE: 01/22/19 TIME: 13:09 Exam/Review of Systems Exam Vitals Vital Signs Date Temp Pulse Resp B/P (MAP) Pulse Ox O2 O2 Flow FiO2 Time Delivery Rate 01/22/19 97.9 80 18 117/88 94 Room Air 08:06 (98) Intake and Output 01/21/19 01/21/19 01/22/19 1515:00 23:00 07:00 IntakeIntake Total 1010 ml 660 ml 250 ml BalanceBalance 1010 ml 660 ml 250 ml Results Result Diagram: 01/22/19 7444 01/22/19 1209 Results 24hrs Laboratory Tests Test 01/22/19 04:50 01/22/19 12:09 White Blood Count 8.3 Red Blood Count 4.80 Hemoglobin 12.1 Hematocrit 38.6 Mean Corpuscular Volume 80.4 L Mean Corpuscular Hemoglobin 25.2 L Mean Corpuscular Hemoglobin Concent 31.3 L Red Cell Distribution Width 13.2 Platelet Count 553 H Mean Platelet Volume 8.7 Immature Granulocytes % 0.600 H Neutrophils % 66.2 Lymphocytes % 25.1 Monocytes % 4.3 Eosinophils % 2.8 Basophils % 1.0 Nucleated Red Blood Cells % 0.0 Immature Granulocytes # 0.050 H Neutrophils # 5.5 Lymphocytes # 2.1 Monocytes # 0.4 Eosinophils # 0.2 Basophils # 0.1 Nucleated Red Blood Cells # 0.0 Sodium Level 140 Potassium Level 4.6 Chloride Level 99 Carbon Dioxide Level 33 H Anion Gap 8 Blood Urea Nitrogen 16 18 Creatinine 0.73 0.82 Est Glomerular Filtrat Rate mL/min > 60 Glucose Level 138 Calcium Level 8.9 Phosphorus Level 4.3 Magnesium Level 1.9 Vancomycin Level Trough 10.5 Medications Medication Current Medications Ferrous Sulfate (Ferrous Sulfate (Ec)) 325 mg DAILY PO Last administered on 01/22/19at 08:56; Admin Dose 325 MG; Start 01/13/19 at 17:30 IV Flush (NS 3 ml) 3 ml PER PROTOCOL IV ; Start 01/13/19 at 17:30 Ondansetron HCl (Zofran Inj) 4 mg Q6H PRN IV NAUSEA/VOMITING; Start 01/13/19 at 17:30 Acetaminophen (Tylenol Tab) 650 mg Q6H PRN PO .PAIN 1-3 OR TEMP; Start 01/13/19 at 17:30 Docusate Sodium (Colace) 100 mg Q12H PRN PO .CONSTIPATION; Start 01/13/19 at 17:30 Magnesium Hydroxide (Milk Of Mag) 30 ml DAILY PRN PO .CONSTIPATION; Start 01/13/19 at 17:30 Famotidine (Pepcid) 20 mg Q12 PO Last administered on 01/22/19at 08:56; Admin Dose 20 MG; Start 01/13/19 at 21:00 Nicotine (Nicoderm 21 Mg/ 24hr) 1 patch DAILY TRANSDERM Last administered on 01/22/19at 10:44; Admin Dose 1 PATCH; Start 01/13/19 at 18:30 Acetaminophen/ Hydrocodone Bitart ([place] (10/325)) 1 tab Q6H PRN PO pain 4-6 Last administered on 01/21/19at 01:40; Admin Dose 1 TAB; Start 01/15/19 at 18:30 Cefepime HCl 50 ml @ 100 mls/hr Q12 IVPB Last administered on 01/22/19at 08:56; Admin Dose 100 MLS/HR; Start 01/16/19 at 21:00 Vancomycin HCl (Vanco Iv Per Pharmacy) VANCOMYCIN PER PHARMACY PER PROTOCOL XX ; Start 01/16/19 at 18:30 Oxycodone/ Acetaminophen (Endocet ()) 1 tab Q6H PRN PO pain 7-10 Last administered on 01/22/19at 10:45; Admin Dose 1 TAB; Start 01/21/19 at 12:00 Vancomycin HCl 1.5 gm/Sodium Chloride 250 ml @ 83.333 mls/ hr Q12H IVPB ; Start 01/22/19 at 14:00 EDY DRUMMOND Jan 22, 2019 13:10
--- NOTE | 2019-01-22 15:22 | PN ---
Date/Time of Note Date/Time of Note DATE: 01/22/19 TIME: 15:19 Objective Vitals Vital Signs Date Temp Pulse Resp B/P (MAP) Pulse Ox O2 O2 Flow FiO2 Time Delivery Rate 01/22/19 97.9 80 18 117/88 94 Room Air 08:06 (98) Intake and Output 01/21/19 01/21/19 01/22/19 1515:00 23:00 07:00 IntakeIntake Total 1010 ml 660 ml 250 ml BalanceBalance 1010 ml 660 ml 250 ml Results Result Diagram: 01/22/19 0450 01/22/19 1209 Medications Medications Current Medications Ferrous Sulfate (Ferrous Sulfate (Ec)) 325 mg DAILY PO Last administered on 01/22/19at 08:56; Admin Dose 325 MG; Start 01/13/19 at 17:30 IV Flush (NS 3 ml) 3 ml PER PROTOCOL IV ; Start 01/13/19 at 17:30 Ondansetron HCl (Zofran Inj) 4 mg Q6H PRN IV NAUSEA/VOMITING; Start 01/13/19 at 17:30 Acetaminophen (Tylenol Tab) 650 mg Q6H PRN PO .PAIN 1-3 OR TEMP; Start 01/13/19 at 17:30 Docusate Sodium (Colace) 100 mg Q12H PRN PO .CONSTIPATION; Start 01/13/19 at 17:30 Magnesium Hydroxide (Milk Of Mag) 30 ml DAILY PRN PO .CONSTIPATION; Start 01/13/19 at 17:30 Famotidine (Pepcid) 20 mg Q12 PO Last administered on 01/22/19at 08:56; Admin Dose 20 MG; Start 01/13/19 at 21:00 Nicotine (Nicoderm 21 Mg/ 24hr) 1 patch DAILY TRANSDERM Last administered on 01/22/19at 10:44; Admin Dose 1 PATCH; Start 01/13/19 at 18:30 Acetaminophen/ Hydrocodone Bitart ([place] (10325)) 1 tab Q6H PRN PO pain 4-6 Last administered on 01/21/19at 01:40; Admin Dose 1 TAB; Start 01/15/19 at 18:30 Cefepime HCl 50 ml @ 100 mls/hr Q12 IVPB Last administered on 01/22/19 08:56; Admin Dose 100 MLS/HR; Start 01/16/19 at 21:00 Vancomycin HCl (Vanco Iv Per Pharmacy) VANCOMYCIN PER PHARMACY PER PROTOCOL XX ; Start 01/16/19 at 18:30 Oxycodone/ Acetaminophen (Endocet (10/ 325)) 1 tab Q6H PRN PO pain 7-10 Last administered on 01/22/19at 10:45; Admin Dose 1 TAB; Start 01/21/19 at 12:00 Vancomycin HCl 1.5 gm/Sodium Chloride 250 ml @ 83.333 mls/ hr Q12H IVPB ; Start 01/22/19 at 14:00 IV Flush (NS 10 ml) 10 ml Q12 IV ; Start 01/22/19 at 21:00 VTE Prophylaxis Risk score (from [facility] [place])>0 risk: 2 SCD applied (from [facility] [place]): Yes Lines/Catheters IV Catheter Type: Fletcher in Place: No Assessment/Plan Hospital Course Subjective Patient stating neck pain is stable, no acute events overnight Objective Physical exam General: Patient is laying in bed and answers questions appropriately Mentation: Patient is alert and oriented 4, Head: Normocephalic atraumatic Eyes: EOMI, pupils reactive to light Neck: Supple, nontender, midline Respiratory: Clear to auscultation bilaterally Cardiovascular: regular rate, no obvious murmurs Gastrointestinal: non-tender to palpation, bowel sounds heard. 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 Microcytic anemia - iron levels noted - continue on home iron supplementation - Hgb stable 4. Tobacco abuse - nicotine patch - offered cessation counseling 5. Meth abuse - counseled about cessation -Patient does have a history of IV meth use as recent as 2 weeks before admission 6. Transaminitis - US RUQ shows fatty liver - LFT trending down - Hepatitis panel negative 7. Disposition -Patient will likely need long-term IV antibiotics, returned case inspector notified that patient will likely need placement given history of IV meth use, we can not send her out in the community with a PICC line. KAYLYNN PEREZ Jan 22, 2019 15:22
[2019-01-22] MEDS: VANCOMYCIN HCL 1.5 GM in SOD CHLORIDE 0.9% 250 ML IVPB SCH (15:26)
[2019-01-22] MEDS: HYDROCODONE/APAP (10/325) TAB PO PRN ×2 (15:34→20:00)
[2019-01-22 15:49] VITALS: BP 124/73; PULSE 87; RESP 18
[2019-01-22] MEDS: OXYCODONE/ACETAMINOPHEN (5/325) TAB PO PRN ×2 (18:07→22:07)
[2019-01-22 19:35] VITALS: BP 122/82; PULSE 94; RESP 18
[2019-01-23 01:21] VITALS: BP 115/63; PULSE 77; RESP 18
[2019-01-23] MEDS: VANCOMYCIN HCL 1.5 GM in SOD CHLORIDE 0.9% 250 ML IVPB SCH ×2 (01:56→14:46)
[2019-01-23] MEDS: HYDROCODONE/APAP (10/325) TAB PO PRN ×2 (03:41→22:54)
[2019-01-23] MEDS: OXYCODONE/ACETAMINOPHEN (5/325) TAB PO PRN ×3 (06:10→18:18)
[2019-01-23 08:05] VITALS: BP 102/73; PULSE 79; RESP 18
[2019-01-23] MEDS: CEFEPIME 1GM/50 ML (PMX) 50 ML IVPB SCH ×2 (08:32→20:23)
[2019-01-23] MEDS: FERROUS SULFATE (EC) 325 MG TAB PO SCH (08:32)
[2019-01-23] MEDS: FAMOTIDINE 20 MG TAB PO SCH ×2 (08:32→20:23)
[2019-01-23] MEDS: NICOTINE (21 MG/24 HR) PATCH TRANSDERM SCH (08:32)
[2019-01-23] MEDS ORDERED: IOHEXOL 300MG/ML 150 ML BTL ONE (10:10)
[2019-01-23] MEDS ORDERED: SOD CHLORIDE 0.9% 100 ML ONE (10:10)
--- NOTE | 2019-01-23 12:05 | PN ---
Date/Time of Note Date/Time of Note DATE: 01/23/19 TIME: 12:03 Objective Vitals Vital Signs Date Temp Pulse Resp B/P (MAP) Pulse Ox O2 O2 Flow FiO2 Time Delivery Rate 01/23/19 98.4 79 18 102/73 99 08:05 (83) 01/22/19 Room Air 15:49 Intake and Output 01/22/19 01/22/19 01/23/19 1515:00 23:00 07:00 IntakeIntake Total 1250 ml 780 ml BalanceBalance 1250 ml 780 ml Results Result Diagram: 01/23/1943001/23/19430 Medications Medications Current Medications Ferrous Sulfate (Ferrous Sulfate (Ec)) 325 mg DAILY PO Last administered on 01/23/19 08:32; Admin Dose 325 MG; Start 01/13/19 at 17:30 IV Flush (NS 3 ml) 3 ml PER PROTOCOL IV ; Start 01/13/19 at 17:30 Ondansetron HCl (Zofran Inj) 4 mg Q6H PRN IV NAUSEA/VOMITING; Start 01/13/19 at 17:30 Acetaminophen (Tylenol Tab) 650 mg Q6H PRN PO .PAIN 1-3 OR TEMP; Start 01/13/19 at 17:30 Docusate Sodium (Colace) 100 mg Q12H PRN PO .CONSTIPATION; Start 01/13/19 at 17:30 Magnesium Hydroxide (Milk Of Mag) 30 ml DAILY PRN PO .CONSTIPATION; Start 01/13/19 at 17:30 Famotidine (Pepcid) 20 mg Q12 PO Last administered on 01/23/19at 08:32; Admin Dose 20 MG; Start 01/13/19 at 21:00 Nicotine (Nicoderm 21 Mg/ 24hr) 1 patch DAILY TRANSDERM Last administered on 01/23/19 08:32; Admin Dose 1 PATCH; Start 01/13/19 at 18:30 Cefepime HCl 50 ml @ 100 mls/hr Q12 IVPB Last administered on 01/23/19at 08:32; Admin Dose 100 MLS/HR; Start 01/16/19 at 21:00 Vancomycin HCl (Vanco Iv Per Pharmacy) VANCOMYCIN PER PHARMACY PER PROTOCOL XX ; Start 01/16/19 at 18:30 Vancomycin HCl 1.5 gm/Sodium Chloride 250 ml @ 83.333 mls/ hr Q12H IVPB Last administered on 01/23/19at 01:56; Admin Dose 83.333 MLS/HR; Start 01/22/19 at 14:00 IV Flush (NS 10 ml) 10 ml Q12 IV Last administered on 01/23/19at 08:32; Admin Dose 10 ML; Start 01/22/19 at 21:00 Acetaminophen/ Hydrocodone Bitart ([place] (10/325)) 1 tab Q4 PRN PO pain 4-10 Last administered on 01/23/19at 03:41; Admin Dose 1 TAB; Start 01/22/19 at 15:30 Oxycodone/ Acetaminophen (Percocet (5/ 325)) 1 tab Q4H PRN PO PAIN LEVEL 7-10 Last administered on 01/23/19at 11:23; Admin Dose 1 TAB; Start 01/22/19 at 18:00 VTE Prophylaxis [place] [facility] [place] risk: 3 [place]CD applied [place] [facility] [place] No SCD contraindication: other Lines/Catheters IV Catheter Type: Fletcher in Place: No Assessment/Plan Hospital Course Subjective Patient has some new right neck/shoulder pain Objective Physical exam General: Patient is laying in bed and answers questions appropriately Mentation: Patient is alert and oriented 4, Head: Normocephalic atraumatic Eyes: EOMI, pupils reactive to light Neck: Supple, nontender, midline Respiratory: Clear to auscultation bilaterally Cardiovascular: regular rate, no obvious murmurs Gastrointestinal: non-tender to palpation, bowel sounds heard. 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 -What appeared to be a mass on CT on MRI turned out to be possible osteomyelitis, orthopedic surgery consulted, stated needs abx, however due to location will also consult cardiothoracic surgery if surgical debridement is needed -IV antibiotic, broad-spectrum -Infectious disease already on board -Pain medication will now be adjusted from IV to oral Recurrent right neck and shoulder pain -Patient stated that since last night there is this new pain on the right shoulder and neck, concern for new developing abscess, CT was taken and ordered with IV contrast, it appears on the medication list IV contrast was given however to radiate along the just read states no contrast, will need to confirm this finding as the radiologist read of the CT upper extremities states that assessment for drainable abscess is limited due to noncontrast. If patient a ctually did not receive contrast will need to reorder scan. Microcytic anemia - iron levels noted - continue on home iron supplementation - Hgb stable Tobacco abuse - nicotine patch - offered cessation counseling Meth abuse - counseled about cessation -Patient does have a history of IV meth use as recent as 2 weeks before admission Transaminitis - US RUQ shows fatty liver - LFT trending down - Hepatitis panel negative Disposition -Patient will likely need long-term IV antibiotics, director case management notified that patient will likely need placement given history of IV meth use, we can not send her out in the community with a PICC line. -We will need to figure out what happened with the CT and find out if she received contrast or not, patient needs contrast imaging study to rule out new abscess due to new neck and shoulder pain. KAYLYNN PEREZ Jan 23, 2019 12:05
[2019-01-23] MEDS ORDERED: HYDROmorphONE 0.5 MG/0.5 ML SYG IV ONE (13:30)
[2019-01-23] MEDS ORDERED: ONDANSETRON 4 MG INJ IV PRN (13:30)
--- NOTE | 2019-01-23 13:33 | CONS ---
Assessment/Plan Assessment/Plan Hospital Course (Demo Recall) No events per report, alert, c/o RUE pain, no fevers, looks comfortable Antimicrobials: Vancomycin, cefepime Diagnostic: MRI of neck with and without IV contrast revealed 1. Extensive inflammatory changes centered around the right sternoclavicular joint with abnormal bone marrow signal of the medial aspect of the right clavicle without destructive osseous changes. The findings are suggestive of infectious/inflammatory arthropathy of the right sternoclavicular joint with reactive changes in the soft tissues. If there is clinical concern for osteomyelitis, short-term MRI follow-up is recommended. 2. Asymmetrically enlarged and edematous appearance of right pectoral and sternocleidomastoid muscles with surrounding soft tissue inflammation in keeping with myositis/cellulitis. No drainable abscess formation is identified. Physical examination: This is a morbidly obese well-developed middle-aged woman who is awake in no distress. Head atraumatic normocephalic sclera nonicteric. Neck is obese. Chest rise symmetrical breath sounds diminished at bases. Heart: S1-S2. Abdomen soft bowel sounds present. Extremities without cyanosis. Assessment: 1. Right sternoclavicular osteomyelitis/septic arthritis==> + phlegmon per CT 2. Morbid obesity 3. Methamphetamine abuse Plan: Stable, ortho on case, pending dc arrangements, pt needs to be continued on IV abx for 6 weeks Consultation Date/Type/Reason Admit Date/Time Jan 13, 2019 at 16:53 Initial Consult Date Type of Consult id Date/Time of Note DATE: 01/23/19 TIME: 13:30 Exam/Review of Systems Exam Vitals Vital Signs Date Temp Pulse Resp B/P (MAP) Pulse Ox O2 O2 Flow FiO2 Time Delivery Rate 01/23/19 98.4 79 18 102/73 99 08:05 (83) 01/22/19 Room Air 15:49 Intake and Output 01/22/19 01/22/19 01/23/19 1515:00 23:00 07:00 IntakeIntake Total 1250 ml 780 ml BalanceBalance 1250 ml 780 ml Results Result Diagram: 01/23/19 0431 01/23/19 0431 Results 24hrs Laboratory Tests Test 01/23/19 04:31 White Blood Count 9.4 Red Blood Count 4.69 Hemoglobin 11.9 L Hematocrit 37.8 Mean Corpuscular Volume 80.6 L Mean Corpuscular Hemoglobin 25.4 L Mean Corpuscular Hemoglobin Concent 31.5 L Red Cell Distribution Width 13.6 Platelet Count 471 H Mean Platelet Volume 8.9 Immature Granulocytes % 0.900 H Neutrophils % 64.6 Lymphocytes % 25.1 Monocytes % 5.6 Eosinophils % 3.1 Basophils % 0.7 Nucleated Red Blood Cells % 0.0 Immature Granulocytes # 0.080 H Neutrophils # 6.1 Lymphocytes # 2.4 Monocytes # 0.5 Eosinophils # 0.3 Basophils # 0.1 Nucleated Red Blood Cells # 0.0 Sodium Level 138 Potassium Level 4.5 Chloride Level 100 Carbon Dioxide Level 31 Anion Gap 7 Blood Urea Nitrogen 19 Creatinine 0.66 Est Glomerular Filtrat Rate mL/min > 60 Glucose Level 104 Calcium Level 8.6 Phosphorus Level 4.9 Magnesium Level 1.9 Medications Medication Current Medications Ferrous Sulfate (Ferrous Sulfate (Ec)) 325 mg DAILY PO Last administered on 01/23/19 08:32; Admin Dose 325 MG; Start 01/13/19 at 17:30 IV Flush (NS 3 ml) 3 ml PER PROTOCOL IV ; Start 01/13/19 at 17:30 Ondansetron HCl (Zofran Inj) 4 mg Q6H PRN IV NAUSEA/VOMITING; Start 01/13/19 at 17:30 Acetaminophen (Tylenol Tab) 650 mg Q6H PRN PO .PAIN 1-3 OR TEMP; Start 01/13/19 at 17:30 Docusate Sodium (Colace) 100 mg Q12H PRN PO .CONSTIPATION; Start 01/13/19 at 17:30 Magnesium Hydroxide (Milk Of Mag) 30 ml DAILY PRN PO .CONSTIPATION; Start 01/13/19 at 17:30 Famotidine (Pepcid) 20 mg Q12 PO Last administered on 01/23/19 08:32; Admin Dose 20 MG; Start 01/13/19 at 21:00 Nicotine (Nicoderm 21 Mg/ 24hr) 1 patch DAILY TRANSDERM Last administered on 01/23/19 08:32; Admin Dose 1 PATCH; Start 01/13/19 at 18:30 Cefepime HCl 50 ml @ 100 mls/hr Q12 IVPB Last administered on 01/23/19 08:32; Admin Dose 100 MLS/HR; Start 01/16/19 at 21:00 Vancomycin HCl (Vanco Iv Per Pharmacy) VANCOMYCIN PER PHARMACY PER PROTOCOL XX ; Start 01/16/19 at 18:30 Vancomycin HCl 1.5 gm/Sodium Chloride 250 ml @ 83.333 mls/ hr Q12H IVPB Last administered on 01/23/19at 01:56; Admin Dose 83.333 MLS/HR; Start 01/22/19 at 14:00 IV Flush (NS 10 ml) 10 ml Q12 IV Last administered on 01/23/19at 08:32; Admin Dose 10 ML; Start 01/22/19 at 21:00 Acetaminophen/ Hydrocodone Bitart ([place] (10/325)) 1 tab Q4 PRN PO pain 4-10 Last administered on 01/23/19at 03:41; Admin Dose 1 TAB; Start 01/22/19 at 15:30 Oxycodone/ Acetaminophen (Percocet (5/ 325)) 1 tab Q4H PRN PO PAIN LEVEL 7-10 Last administered on 01/23/19at 11:23; Admin Dose 1 TAB; Start 01/22/19 at 18:00 Ondansetron HCl (Zofran Inj) 4 mg Q6H PRN IV NAUSEA AND/OR VOMITING; Start 01/23/19 at 13:30 Hydromorphone HCl (Dilaudid) 0.5 mg ONCE ONCE IV ; Start 01/23/19 at 13:30; Stop 01/23/19 at 13:31 TATIANA POTTER NP Jan 23, 2019 13:33
[2019-01-23 14:30] VITALS: BP 116/68; PULSE 86; RESP 18
[2019-01-23 20:57] VITALS: BP 120/83; PULSE 77; RESP 19
[2019-01-24] MEDS: VANCOMYCIN HCL 1.5 GM in SOD CHLORIDE 0.9% 250 ML IVPB SCH ×2 (02:18→14:19)
[2019-01-24 02:19] VITALS: BP 128/75; PULSE 77; RESP 18
[2019-01-24 07:32] VITALS: BP 136/84; PULSE 73; RESP 16
[2019-01-24] MEDS: CEFEPIME 1GM/50 ML (PMX) 50 ML IVPB SCH ×2 (08:37→20:40)
[2019-01-24] MEDS: FERROUS SULFATE (EC) 325 MG TAB PO SCH (08:37)
[2019-01-24] MEDS: NICOTINE (21 MG/24 HR) PATCH TRANSDERM SCH (08:37)
[2019-01-24] MEDS: FAMOTIDINE 20 MG TAB PO SCH ×2 (08:37→20:40)
[2019-01-24] MEDS: OXYCODONE/ACETAMINOPHEN (5/325) TAB PO PRN (09:21)
--- NOTE | 2019-01-24 10:26 | PN ---
Date/Time of Note Date/Time of Note DATE: 01/24/19 TIME: 10:20 Assessment/Plan VTE Prophylaxis Risk score (from Ns)>0 risk: 3 SCD applied (from Nsg): Yes Pharmacological prophylaxis: NA/contraindicated Pharm contraindication: low risk/ambulating Lines/Catheters IV Catheter Type (from Nrsg): PICC Line Central line still needed: Yes Urinary Cath still in place: No Assessment/Plan Assessment/Plan 1. 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 Continue on current antibiotics - ID on board and appreciate antibiotic recommendations - Will check MRI with contrast to evaluate for abscess given CT results limited - PICC line in place and will need SNF placement given IV meth use history - Pain control 2. Microcytic anemia - iron levels noted - continue on home iron supplementation - Hgb stable 3. Tobacco abuse - nicotine patch - Will add gum given patient still with cravings - offered cessation counseling 4. Meth abuse - counseled about cessation - Patient does have a history of IV meth use as recent as 2 weeks before admission - SW consultation appreciated 5. Transaminitis- improving - US RUQ shows fatty liver - Hepatitis panel negative 6. Disposition - MRI of RUE to evaluate for abscess - SNF on board for placement for [employer] IV antibiotics given hx of IV meth use Result Diagram: 01/24/19 0501 01/24/19 0501 Results 24hrs Laboratory Tests Test 01/23/19 14:06 01/23/19 20:39 01/24/19 02:53 01/24/19 05:01 Troponin I < 0.012 < 0.012 < 0.012 White Blood Count 7.6 Red Blood Count 4.63 Hemoglobin 11.6 L Hematocrit 37.5 Mean Corpuscular 81.0 L Volume Mean Corpuscular 25.1 L Hemoglobin Mean Corpuscular 30.9 L Hemoglobin Concent Red Cell 13.6 Distribution Width Platelet Count 488 H Mean Platelet Volume 9.0 Immature 0.700 H Granulocytes % Neutrophils % 68.3 Lymphocytes % 21.3 Monocytes % 6.0 Eosinophils % 2.9 Basophils % 0.8 Nucleated Red Blood 0.0 Cells % Immature 0.050 H Granulocytes # Neutrophils # 5.2 Lymphocytes # 1.6 Monocytes # 0.5 Eosinophils # 0.2 Basophils # 0.1 Nucleated Red Blood 0.0 Cells # Sodium Level 139 Potassium Level 4.3 Chloride Level 100 Carbon Dioxide Level 32 H Anion Gap 7 Blood Urea Nitrogen 15 Creatinine 0.66 Est Glomerular > 60 Filtrat Rate mL/min Glucose Level 99 Calcium Level 8.7 Phosphorus Level 4.5 Magnesium Level 2.2 Subjective 24 Hr Interval Summary Free Text/Dictation Patient still experiencing pain in right clavicular area and states she feels like the area is "weak." Admits [place] and Percocet 5mg isn't effective enough. Exam/Review of Systems Exam Vitals Vital Signs Date Temp Pulse Resp B/P (MAP) Pulse Ox O2 O2 Flow FiO2 Time Delivery Rate 01/24/19 97.8 73 16 136/84 96 Room Air 07:32 (101) Intake and Output 01/23/19 01/23/19 01/24/19 1515:00 23:00 07:00 IntakeIntake Total 1250 ml 980 ml 250 ml BalanceBalance 1250 ml 980 ml 250 ml Exam General: Patient is laying in bed and answers questions appropriately Neck: Supple, nontender, midline Chest: tenderness distal right clavicular area Respiratory: Clear to auscultation bilaterally. no wheezing or rhonchi Cardiovascular: regular rate, no obvious murmurs Gastrointestinal: soft, non-tender to palpation, bowel sounds heard. Neurological: Moves all extremities spontaneously Skin: no rashes appreciated Results Results 24hrs Laboratory Tests Test 01/23/19 14:06 01/23/19 20:39 01/24/19 02:53 01/24/19 05:01 Troponin I < 0.012 < 0.012 < 0.012 White Blood Count 7.6 Red Blood Count 4.63 Hemoglobin 11.6 L Hematocrit 37.5 Mean Corpuscular 81.0 L Volume Mean Corpuscular 25.1 L Hemoglobin Mean Corpuscular 30.9 L Hemoglobin Concent Red Cell 13.6 Distribution Width Platelet Count 488 H Mean Platelet Volume 9.0 Immature 0.700 H Granulocytes % Neutrophils % 68.3 Lymphocytes % 21.3 Monocytes % 6.0 Eosinophils % 2.9 Basophils % 0.8 Nucleated Red Blood 0.0 Cells % Immature 0.050 H Granulocytes # Neutrophils # 5.2 Lymphocytes # 1.6 Monocytes # 0.5 Eosinophils # 0.2 Basophils # 0.1 Nucleated Red Blood 0.0 Cells # Sodium Level 139 Potassium Level 4.3 Chloride Level 100 Carbon Dioxide Level 32 H Anion Gap 7 Blood Urea Nitrogen 15 Creatinine 0.66 Est Glomerular > 60 Filtrat Rate mL/min Glucose Level 99 Calcium Level 8.7 Phosphorus Level 4.5 Magnesium Level 2.2 Medications Medication Current Medications Ferrous Sulfate (Ferrous Sulfate (Ec)) 325 mg DAILY PO Last administered on 01/24/19 08:37; Admin Dose 325 MG; Start 01/13/19 at 17:30 IV Flush (NS 3 ml) 3 ml PER PROTOCOL IV ; Start 01/13/19 at 17:30 Ondansetron HCl (Zofran Inj) 4 mg Q6H PRN IV NAUSEA/VOMITING Last administered on 01/24/19 09:21; Admin Dose 4 MG; Start 01/13/19 at 17:30 Acetaminophen (Tylenol Tab) 650 mg Q6H PRN PO .PAIN 1-3 OR TEMP; Start 01/13/19 at 17:30 Docusate Sodium (Colace) 100 mg Q12H PRN PO .CONSTIPATION; Start 01/13/19 at 17:30 Magnesium Hydroxide (Milk Of Mag) 30 ml DAILY PRN PO .CONSTIPATION Last administered on 01/23/19 18:18; Admin Dose 30 ML; Start 01/13/19 at 17:30 Famotidine (Pepcid) 20 mg Q12 PO Last administered on 01/24/19 08:37; Admin Dose 20 MG; Start 01/13/19 at 21:00 Nicotine (Nicoderm 21 Mg/ 24hr) 1 patch DAILY TRANSDERM Last administered on 01/24/19 08:37; Admin Dose 1 PATCH; Start 01/13/19 at 18:30 Cefepime HCl 50 ml @ 100 mls/hr Q12 IVPB Last administered on 01/24/19 08:37; Admin Dose 100 MLS/HR; Start 01/16/19 at 21:00 Vancomycin HCl (Vanco Iv Per Pharmacy) VANCOMYCIN PER PHARMACY PER PROTOCOL XX ; Start 01/16/19 at 18:30 Vancomycin HCl 1.5 gm/Sodium Chloride 250 ml @ 83.333 mls/ hr Q12H IVPB Last administered on 01/24/19 02:18; Admin Dose 83.333 MLS/HR; Start 01/22/19 at 14:00 IV Flush (NS 10 ml) 10 ml Q12 IV Last administered on 4/16/19at 08:38; Admin Dose 10 ML; Start 01/22/19 at 21:00 Acetaminophen/ Hydrocodone Bitart ([place] ()) 1 tab Q4 PRN PO pain 4-10 Last administered on 01/23/19at 22:54; Admin Dose 1 TAB; Start 01/22/19 at 15:30 Ondansetron HCl (Zofran Inj) 4 mg Q6H PRN IV NAUSEA AND/OR VOMITING Last administered on 01/23/19at 13:30; Admin Dose 4 MG; Start 01/23/19 at 13:30 Oxycodone/ Acetaminophen (Endocet ()) 1 tab Q4H PRN PO SEVERE PAIN LEVEL 7-10; Start 01/24/19 at 10:30 Lorazepam (Ativan) 2 mg ONCE PRN IV prior to MRI; Start 01/24/19 at 10:30; Stop 01/24/19 at 23:00 Nicotine Polacrilex ([place]) 2 mg Q2H PRN BUCCAL nicotine craving; Start 01/24/19 at 10:30; Status MEENAKSHI SOUZA MD Jan 24, 2019 10:26
[2019-01-24] MEDS ORDERED: NICOTINE POLACRILEX 2 MG GUM BUCCAL PRN (10:30)
[2019-01-24] MEDS ORDERED: LORAZEPAM 2 MG INJ IV PRN (10:30)
--- NOTE | 2019-01-24 11:47 | CONS ---
Assessment/Plan Assessment/Plan Hospital Course (Demo Recall) No events per report, all noted, no fevers Antimicrobials: Vancomycin, cefepime Physical examination: This is a morbidly obese well-developed middle-aged woman who is awake in no distress. Head atraumatic normocephalic sclera nonicteric. Neck is obese. Chest rise symmetrical breath sounds diminished at bases. Heart: S1-S2. Abdomen soft bowel sounds present. Extremities without cyanosis. Assessment: 1. Right sternoclavicular osteomyelitis/septic arthritis==> + phlegmon per CT 2. Morbid obesity 3. Methamphetamine abuse Plan: Clinically unchanged, ortho on case, no planned interventions, continue usp IV abx Consultation Date/Type/Reason Admit Date/Time Jan 13, 2019 at 16:53 Initial Consult Date Type of Consult id Date/Time of Note DATE: 01/24/19 TIME: 11:44 Exam/Review of Systems Exam Vitals Vital Signs Date Temp Pulse Resp B/P (MAP) Pulse Ox O2 O2 Flow FiO2 Time Delivery Rate 01/24/19 97.8 73 16 136/84 96 Room Air 07:32 (101) Intake and Output 01/23/19 01/23/19 01/24/19 1515:00 23:00 07:00 IntakeIntake Total 1250 ml 980 ml 250 ml BalanceBalance 1250 ml 980 ml 250 ml Results Result Diagram: 01/24/19 0501 01/24/19 0501 Results 24hrs Laboratory Tests Test 01/23/19 14:06 01/23/19 20:39 01/24/19 02:53 01/24/19 05:01 Troponin I < 0.012 < 0.012 < 0.012 White Blood Count 7.6 Red Blood Count 4.63 Hemoglobin 11.6 L Hematocrit 37.5 Mean Corpuscular 81.0 L Volume Mean Corpuscular 25.1 L Hemoglobin Mean Corpuscular 30.9 L Hemoglobin Concent Red Cell 13.6 Distribution Width Platelet Count 488 H Mean Platelet Volume 9.0 Immature 0.700 H Granulocytes % Neutrophils % 68.3 Lymphocytes % 21.3 Monocytes % 6.0 Eosinophils % 2.9 Basophils % 0.8 Nucleated Red Blood 0.0 Cells % Immature 0.050 H Granulocytes # Neutrophils # 5.2 Lymphocytes # 1.6 Monocytes # 0.5 Eosinophils # 0.2 Basophils # 0.1 Nucleated Red Blood 0.0 Cells # Sodium Level 139 Potassium Level 4.3 Chloride Level 100 Carbon Dioxide Level 32 H Anion Gap 7 Blood Urea Nitrogen 15 Creatinine 0.66 Est Glomerular > 60 Filtrat Rate mL/min Glucose Level 99 Calcium Level 8.7 Phosphorus Level 4.5 Magnesium Level 2.2 Medications Medication Current Medications Ferrous Sulfate (Ferrous Sulfate (Ec)) 325 mg DAILY PO Last administered on 01/24/19 08:37; Admin Dose 325 MG; Start 01/13/19 at 17:30 IV Flush (NS 3 ml) 3 ml PER PROTOCOL IV ; Start 01/13/19 at 17:30 Ondansetron HCl (Zofran Inj) 4 mg Q6H PRN IV NAUSEA/VOMITING Last administered on 01/24/19 09:21; Admin Dose 4 MG; Start 01/13/19 at 17:30 Acetaminophen (Tylenol Tab) 650 mg Q6H PRN PO .PAIN 1-3 OR TEMP; Start 01/13/19 at 17:30 Docusate Sodium (Colace) 100 mg Q12H PRN PO .CONSTIPATION; Start 01/13/19 at 17:30 Magnesium Hydroxide (Milk Of Mag) 30 ml DAILY PRN PO .CONSTIPATION Last administered on 01/23/19 18:18; Admin Dose 30 ML; Start 01/13/19 at 17:30 Famotidine (Pepcid) 20 mg Q12 PO Last administered on 01/24/19 08:37; Admin Dose 20 MG; Start 01/13/19 at 21:00 Nicotine (Nicoderm 21 Mg/ 24hr) 1 patch DAILY TRANSDERM Last administered on 01/24/19 08:37; Admin Dose 1 PATCH; Start 01/13/19 at 18:30 Cefepime HCl 50 ml @ 100 mls/hr Q12 IVPB Last administered on 01/24/19 08:37; Admin Dose 100 MLS/HR; Start 01/16/19 at 21:00 Vancomycin HCl (Vanco Iv Per Pharmacy) VANCOMYCIN PER PHARMACY PER PROTOCOL XX ; Start 01/16/19 at 18:30 Vancomycin HCl 1.5 gm/Sodium Chloride 250 ml @ 83.333 mls/ hr Q12H IVPB Last administered on 01/24/19 02:18; Admin Dose 83.333 MLS/HR; Start 01/22/19 at 14:00 IV Flush (NS 10 ml) 10 ml Q12 IV Last administered on 01/24/19at 08:38; Admin Dose 10 ML; Start 01/22/19 at 21:00 Acetaminophen/ Hydrocodone Bitart ([place] (325)) 1 tab Q4 PRN PO pain 4-10 Last administered on 01/23/19at 22:54; Admin Dose 1 TAB; Start 01/22/19 at 15:30 Ondansetron HCl (Zofran Inj) 4 mg Q6H PRN IV NAUSEA AND/OR VOMITING Last administered on 01/23/19at 13:30; Admin Dose 4 MG; Start 01/23/19 at 13:30 Oxycodone/ Acetaminophen (Endocet ()) 1 tab Q4H PRN PO SEVERE PAIN LEVEL 7-10; Start 01/24/19 at 10:30 Lorazepam (Ativan) 2 mg ONCE PRN IV prior to MRI; Start 01/24/19 at 10:30; Stop 01/24/19 at 23:00 Nicotine Polacrilex (Nicorette) 2 mg Q2H PRN BUCCAL nicotine craving; Start 01/24/19 at 10:30 TATIANA POTTER NP Jan 24, 2019 11:47
[2019-01-24 14:39] VITALS: BP 123/90; PULSE 78; RESP 17
--- NOTE | 2019-01-24 17:36 | RADRPT ---
Vent Rate: 82 bpm RR Interval: 732 msec MT Interval: 156 msec QRS Duration: 97 msec QT Interval: 399 msec QTC Interval: 466 msec P-R-T [place]: 54 - 41 - 35 degrees Sinus rhythm...normal P axis, V-rate 50- 99 Electronically Signed By: Duran Calixto
[2019-01-24] MEDS: OXYCODONE/ACETAMINOPHEN (10/325) TAB PO PRN ×2 (18:11→22:26)
[2019-01-24 20:00] VITALS: BP 121/62; PULSE 87; RESP 17
[2019-01-25 02:00] VITALS: BP 133/88; PULSE 79; RESP 18
[2019-01-25] MEDS ORDERED: ALTEPLASE (CATHFLO) 2 MG INJ CATHETER ONE (02:30)
[2019-01-25] MEDS: VANCOMYCIN HCL 1.5 GM in SOD CHLORIDE 0.9% 250 ML IVPB SCH ×2 (02:33→15:19)
[2019-01-25] MEDS: OXYCODONE/ACETAMINOPHEN (10/325) TAB PO PRN ×3 (02:33→17:01)
[2019-01-25 07:38] VITALS: BP 119/66; PULSE 74; RESP 18
[2019-01-25] MEDS: FAMOTIDINE 20 MG TAB PO SCH (08:13)
[2019-01-25] MEDS: CEFEPIME 1GM/50 ML (PMX) 50 ML IVPB SCH (08:13)
[2019-01-25] MEDS: FERROUS SULFATE (EC) 325 MG TAB PO SCH (08:13)
[2019-01-25] MEDS: NICOTINE (21 MG/24 HR) PATCH TRANSDERM SCH (08:14)
[2019-01-25] MEDS ORDERED: MAGNESIUM SULFATE 2 GM/50 ML 50 ML IVPB ONE (10:00)
--- NOTE | 2019-01-25 12:00 | PN ---
Date/Time of Note Date/Time of Note DATE: 01/25/19 TIME: 11:46 Assessment/Plan VTE Prophylaxis Risk score (from Nsg)>0 risk: 3 SCD applied (from Nsg): Yes Pharmacological prophylaxis: NA/contraindicated Pharm contraindication: low risk/ambulating Lines/Catheters IV Catheter Type (from Nrsg): PICC Line Central line still needed: Yes Urinary Cath still in place: No Assessment/Plan Assessment/Plan 1. Sternoclavicular osteomyelitis - Repeat MRI was negative for acute abscess - Ortho consultation appreciated and will continue fci antibiotics - ID on board and appreciate antibiotic recommendations - PICC line in place and will need SNF placement given IV meth use history - Pain control 2. Microcytic anemia - iron levels noted - continue on home iron supplementation - Hgb stable 3. Tobacco abuse - offered cessation counseling 4. Meth abuse - counseled about cessation - Patient does have a history of IV meth use as recent as 2 weeks before admission - SW consultation appreciated 5. Transaminitis- improving - US RUQ shows fatty liver - Hepatitis panel negative 6. Disposition - Medically stable for discharge. Patient requesting a different SNF facility but [facility] for another location would take another week. Result Diagram: 01/24/19 0501 01/25/19 0437 Results 24hrs Laboratory Tests Test 01/25/19 00:48 01/25/19 04:37 Vancomycin Level Trough 14.9 Sodium Level 141 Potassium Level 4.2 Chloride Level 109 Carbon Dioxide Level 27 Anion Gap 5 Blood Urea Nitrogen 18 Creatinine 0.60 Est Glomerular Filtrat Rate mL/min > 60 Glucose Level 104 Calcium Level 7.2 L Magnesium Level 1.6 L Total Bilirubin 0.1 L Direct Bilirubin 0.00 Indirect Bilirubin 0.1 Aspartate Amino Transf (AST/SGOT) 80 H Alanine Aminotransferase (ALT/SGPT) 103 H Alkaline Phosphatase 78 Total Protein 6.3 Albumin 2.8 L Globulin 3.50 H Albumin/Globulin Ratio 0.80 Subjective 24 Hr Interval Summary Free Text/Dictation Patients doing well and was concerned about being discharged to [facility] since its so far from the [place]. No acute overnight events. Exam/Review of Systems Exam Vitals Vital Signs Date Temp Pulse Resp B/P (MAP) Pulse Ox O2 O2 Flow FiO2 Time Delivery Rate 01/25/19 97.9 74 18 119/66 97 07:38 (83) 01/24/19 Room Air 14:39 Intake and Output 01/24/19 01/24/19 01/25/19 1515:00 23:00 07:00 IntakeIntake Total 600 ml 710 ml 250 ml BalanceBalance 600 ml 710 ml 250 ml Exam General: Patient is walking around room, no acute distress Neck: Supple, nontender, midline Chest: tenderness distal right clavicular area Respiratory: Clear to auscultation bilaterally. no wheezing or rhonchi Cardiovascular: regular rate and rhythm, no obvious murmurs Gastrointestinal: soft, non-tender to palpation, bowel sounds heard. Ext: Moves all extremities spontaneously. right upper extremity limited due to discomfort Skin: no rashes appreciated. no erythema or lesions noted. Results Results 24hrs Laboratory Tests Test 01/25/19 00:48 01/25/19 04:37 Vancomycin Level Trough 14.9 Sodium Level 141 Potassium Level 4.2 Chloride Level 109 Carbon Dioxide Level 27 Anion Gap 5 Blood Urea Nitrogen 18 Creatinine 0.60 Est Glomerular Filtrat Rate mL/min > 60 Glucose Level 104 Calcium Level 7.2 L Magnesium Level 1.6 L Total Bilirubin 0.1 L Direct Bilirubin 0.00 Indirect Bilirubin 0.1 Aspartate Amino Transf (AST/SGOT) 80 H Alanine Aminotransferase (ALT/SGPT) 103 H Alkaline Phosphatase 78 Total Protein 6.3 Albumin 2.8 L Globulin 3.50 H Albumin/Globulin Ratio 0.80 Medications Medication Current Medications Ferrous Sulfate (Ferrous Sulfate (Ec)) 325 mg DAILY PO Last administered on 01/25/19at 08:13; Admin Dose 325 MG; Start 01/13/19 at 17:30 IV Flush (NS 3 ml) 3 ml PER PROTOCOL IV ; Start 01/13/19 at 17:30 Ondansetron HCl (Zofran Inj) 4 mg Q6H PRN IV NAUSEA/VOMITING Last administered on 01/24/19at 09:21; Admin Dose 4 MG; Start 01/13/19 at 17:30 Acetaminophen (Tylenol Tab) 650 mg Q6H PRN PO .PAIN 1-3 OR TEMP; Start 01/13/19 at 17:30 Docusate Sodium (Colace) 100 mg Q12H PRN PO .CONSTIPATION Last administered on 01/25/19at 08:34; Admin Dose 100 MG; Start 01/13/19 at 17:30 Magnesium Hydroxide (Milk Of Mag) 30 ml DAILY PRN PO .CONSTIPATION Last administered on 01/23/19 18:18; Admin Dose 30 ML; Start 01/13/19 at 17:30 Famotidine (Pepcid) 20 mg Q12 PO Last administered on 01/25/19 08:13; Admin Dose 20 MG; Start 01/13/19 at 21:00 Nicotine (Nicoderm 21 Mg/ 24hr) 1 patch DAILY TRANSDERM Last administered on 01/25/19 08:14; Admin Dose 1 PATCH; Start 01/13/19 at 18:30 Cefepime HCl 50 ml @ 100 mls/hr Q12 IVPB Last administered on 01/25/19 08:13; Admin Dose 100 MLS/HR; Start 01/16/19 at 21:00 Vancomycin HCl (Vanco Iv Per Pharmacy) VANCOMYCIN PER PHARMACY PER PROTOCOL XX ; Start 01/16/19 at 18:30 Vancomycin HCl 1.5 gm/Sodium Chloride 250 ml @ 83.333 mls/ hr Q12H IVPB Last administered on 01/25/19 02:33; Admin Dose 83.333 MLS/HR; Start 01/22/19 at 14:00 IV Flush (NS 10 ml) 10 ml Q12 IV Last administered on 01/25/19 08:14; Admin Dose 10 ML; Start 01/22/19 at 21:00 Acetaminophen/ Hydrocodone Bitart ([place] (10/325)) 1 tab Q4 PRN PO pain 4-10 Last administered on 01/23/19 22:54; Admin Dose 1 TAB; Start 01/22/19 at 15:30 Ondansetron HCl (Zofran Inj) 4 mg Q6H PRN IV NAUSEA AND/OR VOMITING Last administered on 01/23/19 13:30; Admin Dose 4 MG; Start 01/23/19 at 13:30 Oxycodone/ Acetaminophen (Endocet (10/ 325)) 1 tab Q4H PRN PO SEVERE PAIN LEVEL 7-10 Last administered on 01/25/19 08:30; Admin Dose 1 TAB; Start 01/24/19 at 10:30 Nicotine Polacrilex (Nicorette) 2 mg Q2H PRN BUCCAL nicotine craving Last administered on 01/24/19 12:26; Admin Dose 2 MG; Start 01/24/19 at 10:30 Magnesium Sulfate 50 ml @ 25 mls/hr ONCE ONCE IVPB Last administered on 01/25/19at 09:30; Admin Dose 25 MLS/HR; Start 01/25/19 at 10:00; Stop 01/25/19 at 11:59 MEENAKSHI BROUSSARD MD Jan 25, 2019 11:57
--- NOTE | 2019-01-25 12:11 | CONS ---
Assessment/Plan Assessment/Plan Hospital Course (Demo Recall) Awake, looks comfortable, no fevers MRI report noted==> on file Antimicrobials: Vancomycin, cefepime Physical examination: This is a morbidly obese well-developed middle-aged woman who is awake in no distress. Head atraumatic normocephalic sclera nonicteric. Neck is obese. Chest rise symmetrical breath sounds diminished at bases. Heart: S1-S2. Abdomen soft bowel sounds present. Extremities without cyanosis. Assessment: 1. Right sternoclavicular osteomyelitis/septic arthritis 2. Morbid obesity 3. Methamphetamine abuse Plan: Clinically unchanged, per ortho rec-s continue on IV abx for 6-8 weeks, consider dw IR if needle aspiration could be done, add Flagyl for anaerobic c overage Consultation Date/Type/Reason Admit Date/Time Jan 13, 2019 at 16:53 Initial Consult Date Type of Consult id Date/Time of Note DATE: 01/25/19 TIME: 12:09 Exam/Review of Systems Exam Vitals Vital Signs Date Temp Pulse Resp B/P (MAP) Pulse Ox O2 O2 Flow FiO2 Time Delivery Rate 01/25/19 97.9 74 18 119/66 97 07:38 (83) 01/24/19 Room Air 14:39 Intake and Output 01/24/19 01/24/19 01/25/19 1515:00 23:00 07:00 IntakeIntake Total 600 ml 710 ml 250 ml BalanceBalance 600 ml 710 ml 250 ml Results Result Diagram: 01/24/19 0501 01/25/19 0437 Results 24hrs Laboratory Tests Test 01/25/19 00:48 01/25/19 04:37 Vancomycin Level Trough 14.9 Sodium Level 141 Potassium Level 4.2 Chloride Level 109 Carbon Dioxide Level 27 Anion Gap 5 Blood Urea Nitrogen 18 Creatinine 0.60 Est Glomerular Filtrat Rate mL/min > 60 Glucose Level 104 Calcium Level 7.2 L Magnesium Level 1.6 L Total Bilirubin 0.1 L Direct Bilirubin 0.00 Indirect Bilirubin 0.1 Aspartate Amino Transf (AST/SGOT) 80 H Alanine Aminotransferase (ALT/SGPT) 103 H Alkaline Phosphatase 78 Total Protein 6.3 Albumin 2.8 L Globulin 3.50 H Albumin/Globulin Ratio 0.80 Medications Medication Current Medications Ferrous Sulfate (Ferrous Sulfate (Ec)) 325 mg DAILY PO Last administered on 01/25/19at 08:13; Admin Dose 325 MG; Start 01/13/19 at 17:30 IV Flush (NS 3 ml) 3 ml PER PROTOCOL IV ; Start 01/13/19 at 17:30 Ondansetron HCl (Zofran Inj) 4 mg Q6H PRN IV NAUSEA/VOMITING Last administered on 01/24/19 09:21; Admin Dose 4 MG; Start 01/13/19 at 17:30 Acetaminophen (Tylenol Tab) 650 mg Q6H PRN PO .PAIN 1-3 OR TEMP; Start 01/13/19 at 17:30 Docusate Sodium (Colace) 100 mg Q12H PRN PO .CONSTIPATION Last administered on 01/25/19 08:34; Admin Dose 100 MG; Start 01/13/19 at 17:30 Magnesium Hydroxide (Milk Of Mag) 30 ml DAILY PRN PO .CONSTIPATION Last administered on 01/23/19 18:18; Admin Dose 30 ML; Start 01/13/19 at 17:30 Famotidine (Pepcid) 20 mg Q12 PO Last administered on 01/25/19 08:13; Admin Dose 20 MG; Start 01/13/19 at 21:00 Nicotine (Nicoderm 21 Mg/ 24hr) 1 patch DAILY TRANSDERM Last administered on 08:14; Admin Dose 1 PATCH; Start 01/13/19 at 18:30 Cefepime HCl 50 ml @ 100 mls/hr Q12 IVPB Last administered on 01/25/19 08:13; Admin Dose 100 MLS/HR; Start 01/16/19 at 21:00 Vancomycin HCl (Vanco Iv Per Pharmacy) VANCOMYCIN PER PHARMACY PER PROTOCOL XX ; Start 01/16/19 at 18:30 Vancomycin HCl 1.5 gm/Sodium Chloride 250 ml @ 83.333 mls/ hr Q12H IVPB Last administered on 01/25/19 02:33; Admin Dose 83.333 MLS/HR; Start 01/22/19 at 14:00 IV Flush (NS 10 ml) 10 ml Q12 IV Last administered on 01/25/19 08:14; Admin Dose 10 ML; Start 01/22/19 at 21:00 Acetaminophen/ Hydrocodone Bitart ([place] (10/325)) 1 tab Q4 PRN PO pain 4-10 Last administered on 01/23/19 22:54; Admin Dose 1 TAB; Start 01/22/19 at 15:30 Ondansetron HCl (Zofran Inj) 4 mg Q6H PRN IV NAUSEA AND/OR VOMITING Last ad ministered on 01/23/19 13:30; Admin Dose 4 MG; Start 01/23/19 at 13:30 Oxycodone/ Acetaminophen (Endocet (10/ 325)) 1 tab Q4H PRN PO SEVERE PAIN LEVEL 7-10 Last administered on 01/25/19 08:30; Admin Dose 1 TAB; Start 01/24/19 at 10:30 Nicotine Polacrilex (Nicorette) 2 mg Q2H PRN BUCCAL nicotine craving Last administered on 01/24/19 12:26; Admin Dose 2 MG; Start 01/24/19 at 10:30 TATIANA POTTER NP Jan 25, 2019 12:11
[2019-01-25] MEDS ORDERED: HYDR-4011 PO (12:16)
[2019-01-25] MEDS ORDERED: NICO-546 TRANSDERM (12:16)
[2019-01-25] MEDS ORDERED: OXYC-431 PO (12:16)
--- NOTE | 2019-01-25 12:20 | PDOCDIS ---
Discharge Instructions DIAGNOSIS Discharge Diagnosis 1. Sternoclavicular osteomyelitis 2. Microcytic anemia 3. Tobacco abuse 4. h/o Meth use 5. Transaminitis- improving CONDITION [id number] Patient Condition: [id number] Stable HOME CARE INSTRUCTIONS: [id number] Diet Instructions: [id number] Low Fat /Cholesterol FOLLOW UP/APPOINTMENTS Follow-up Plan 1. Follow up with your primary care physician in 1 weeks. If you do not have one, you can go to either [facility] or call Dr. Ruperto Overton office 2. Continue antibiotics until February 25 3. It is important to stop smoking and using any type of substances to help prevent further medical issues in the future 4. If you are experiencing any concerning symptoms, go to your closest emergency department REFERRALS Other Referrals Ruperto Diaz MD Specialty Internal Medicine Comments Office Address [address] [phone] Office MEENAKSHI BROUSSARD MD Jan 25, 2019 12:20
[2019-01-25] MEDS ORDERED: metroNIDAZOLE 500 MG TAB PO SCH (14:00)
[2019-01-25 14:33] VITALS: BP 145/81; PULSE 88; RESP 18
--- NOTE | 2019-01-25 17:28 | DS ---
Date/Time of Note Date/Time of Note DATE: 01/25/19 TIME: 17:23 Discharge Summary Admission/Discharge Info Admit Date/Time Jan 13, 2019 at 16:53 Discharge Date/Time 01/25/19 Discharge Diagnosis 1. Sternoclavicular osteomyelitis 2. Microcytic anemia 3. Tobacco abuse 4. h/o Meth use 5. Transaminitis- improving Patient Condition: Stable Consults Infectious disease- Dr. Hanna Ortho- Dr. Bekc Procedures PROCEDURE: Ultrasound proximal upper extremity for PICC placement CLINICAL INDICATION: PICC placement TECHNIQUE: Sonographic evaluation of the proximal right upper extremity vessels was performed utilizing a high-frequency linear transducer. COMPARISON: None available FINDINGS: Limited evaluation of the proximal upper extremity for vascular access for PICC placement. Grossly, no abnormality is seen. IMPRESSION: 1. Unremarkable limited proximal right upper extremity ultrasound for PICC placement. RPTAT: QQ .Alexandru Faulkner MD, MD Date Time Electronically viewed and signed by .Alexandru Faulkner MD, MD on 01/22/2019 18:32 Hx of Present Illness 33 yo F with no significant PMH present to OSH for evaluation of worsening right sided chest, neck, and scalp pain. Patient states she has a history of abdominal issues with a recent abscess and thought her symptoms were associated. She went to [facility] where she had imaging studies performed and they told her she may have a tumor. She was discharged since they didn't take her insurance, according to her. Patient states she has been having difficulty turning her neck to the left and feels as if her neck is going to "snap." Pat ient admits to difficulty eating due to discomfort but denies any fevers, chills, shortness of breath, recent weight loss, nausea, vomiting, dizziness, LOC, abdominal pain, or urinary issues. Patient denies any trauma to area but does have discomfort when lifting right arm. At OSH, CT scan was performed of neck and chest with findings of "ill-defined increased soft tissue density in the subcutaneous fat overlying the right medial clavicular head with normal asymmetric enlargement of the distal inferior right sternocleidomastoid muscle measuring up to 5 x3.5bm. Abnormal ill defined soft tissue density posterior to the manubrium extending superiorly anterior to the thyroid displacing the thyroid, innominate vein, and the trachea posteriorly approx 4.6 x 4cm." All labs within normal limits except for mild microcytic anemia Hospital Course Patient was admitted for workup of unknown density seen on imaging studies. After full workup, patient was found with sternoclavicular osteomyelitis. Infections disease was consulted for antibiotic recommendations and Ortho was consulted for evaluation with no surgical intervention needed. Patients swelling improved after placed and antibiotics. Imaging studies were repeated due to worsening neck pain but there was not change in appearance of swelling as well as no abscess appreciated. Patient admitted to IV meth use and given high risk, CM was consulted for SNF placement for PICC line care and IV antibiotics. Patient was incidentally found with elevated liver enzymes but US revealed fatty liver and hepatitis panel was negative. Patient was accepted to [facility] and despite resistance was discharged to SNF in stable condition. Home Meds Active Scripts Oxycodone HCl/Acetaminophen (Oxycodone-Acetaminophen 10-325) 1 Each Tablet, 1 TAB PO Q4H PRN for SEVERE PAIN LEVEL 7-10 for 5 Days, #20 TAB Prov:MEENAKSHI BROUSSARD MD 01/25/19 Hydrocodone/Acetaminophen ([place] 5-325 Tablet) 1 Each Tablet, 1 EACH PO Q6 PRN for PAIN LEVEL 4-6 for 5 Days, #20 TAB Prov:MEENAKSHI BROUSSARD MD 01/25/19 Nicotine* (Nicotine* Patch) 21 mg/day Patch, 1 PATCH TRANSDERM DAILY for 30 Days, #30 PATCH Prov:MEENAKSHI BROUSSARD MD 01/25/19 Ibuprofen* (Ibuprofen*) 400 Mg Tablet, 400 MG PO Q6H PRN for PAIN, #30 TAB Prov:IDANIA SANDERSON PA-C 09/19/17 Reported Medications Ferrous Sulfate (Iron) 1 Tab Tablet, 1 TAB PO DAILY 05/25/12 Vits W-Ca,Fe,Fa(<1MG) ( Vitamins) 1 Tab Tablet, 1 TAB PO DAILY 05/25/12 Follow-up Plan 1. Follow up with your primary care physician in 1 weeks. If you do not have one, you can go to either [facility] or call Dr. Ruperto Overton office 2. Continue antibiotics until May 18th 3. It is important to stop smoking and using any type of substances to help prevent further medical issues in the future 4. If you are experiencing any concerning symptoms, go to your closest emergency department Primary Care Provider Care Physician No Primary Time spent on discharge: > 30 minutes Pending Labs Laboratory Tests Test 01/25/19 00:48 01/25/19 04:37 Vancomycin Level Trough 14.9 ug/ml (10.0-20.0) Sodium Level 141 mmol/L (135-144) Potassium Level 4.2 mmol/L (3.5-5.1) Chloride Level 109 mmol/L (97-110) Carbon Dioxide Level 27 mmol/L (21-31) Anion Gap 5 (5-13) Blood Urea Nitrogen 18 mg/dl (7-20) Creatinine 0.60 mg/dl (0.44-1.00) Est Glomerular Filtrat > 60 mL/min (>60) Rate mL/min Glucose Level 104 mg/dl (70-220) Calcium Level 7.2 mg/dl (8.4-10.2) Magnesium Level 1.6 mg/dl (1.7-2.5) Total Bilirubin 0.1 mg/dl (0.2-1.3) Direct Bilirubin 0.00 mg/dl (0.00-0.20) Indirect Bilirubin 0.1 mg/dl (0-1.1) Aspartate Amino 80 IU/L (15-46) Transf (AST/SGOT) Alanine 103 IU/L (13-69) Aminotransferase (ALT/SGPT) Alkaline Phosphatase 78 IU/L (42-121) Total Protein 6.3 g/dl (6.1-8.1) Albumin 2.8 g/dl (3.3-4.9) Globulin 3.50 g/dl (1.3-3.2) Albumin/Globulin Ratio 0.80 MEENAKSHI BROUSSARD MD Jan 25, 2019 17:28
== END 2019-01-25 19:00 | DRG 540 ==
LOC: 2NE 16:53 → UNDODISIN 01-25 19:00
PROVIDERS: ADMIT Internal Medicine; ATTEND Internal Medicine
PROC: 02HV33Z Insertion of Infusion Device into Superior Vena Cava, Percutaneous Approach (ICD-10-PCS; principal; 2019-01-22)
PROC: B54MZZA Ultrasonography of Right Upper Extremity Veins, Guidance (ICD-10-PCS; 2019-01-22)
DX: M86.8X8 Other osteomyelitis, other site (principal); Z68.42 Body mass index [BMI] 45.0-49.9, adult; M00.9 Pyogenic arthritis, unspecified; F15.10 Other stimulant abuse, uncomplicated; E66.01 Morbid (severe) obesity due to excess calories; D50.9 Iron deficiency anemia, unspecified; F17.200 Nicotine dependence, unspecified, uncomplicated; R74.0 Nonspecific elevation of levels of transaminase and lactic acid dehydrogenase [LDH]; M60.9 Myositis, unspecified
CPT/HCPCS: 36569; 70542; 71045; 71046; 73200; 76536; 76705; 76937; 80048; 80053; 80202; 82565; 83540; 83735; 84100; 84436; 84443; 84479; 84484; 84520; 84703; 85025; 86703; 86704; 86709; 86803; 87340; 93005; J0692; J1170; J2060; J2270; J2405; J2997; J3370; J3475; J7040; J7050; Q9967